=== PATIENT | female | born 1950 | race Caucasian/White ===

== ENCOUNTER 2021-08-05 09:25 | Outpatient (CLI) | payer MEDICARE, OTHER, SELFPAY ==
--- NOTE | 2021-08-05 09:35 | XR_ITS ---
WS: [id number] Exam: XR knees AP WB w RT lmt ORTH Date/Time of Exam: 08/05/2021 9:56 AM Reason For Exam: M25.561 - Pain in right knee No fracture or dislocation. Moderate tricompartmental DJD most advanced involving the lateral joint c ompartment. No significant joint effusion seen. AP view of the left knee shows a total joint replacem ent appearing to be intact XR/XR knees AP WB w RT lmt ORTH IMPRESSION: 1. Moderate tricompartmental DJD. No fracture or joint effusion.
== END 2021-08-05 09:26 | disposition home or self-care (01) ==
LOC: RAD 09:29
PROVIDERS: PCP Registered Nurse; Visit Provider Specialist
DX: M17.11 Unilateral primary osteoarthritis, right knee (principal)
CPT/HCPCS: 73560; 73565

== ENCOUNTER 2021-08-23 09:32 | Outpatient (CLI) | payer MEDICARE, OTHER, SELFPAY ==
--- NOTE | 2021-08-23 09:40 | MR_ITS ---
WS: [id number] MRI RIGHT KNEE HISTORY: RIGHT knee pain. Possible meniscal tear. COMPARISON: 08/05/2021 radiographs. Anterior cruciate ligament: Intact. Posterior cruciate ligament: Intact. Medial collateral ligament: Intact. Posterior lateral corner structures: Intact. Medial menisci: No tear. Mild surface fraying. Lateral meniscus: Abnormal signal in the posterior horn. There is a horizontal tear that extends to t he inferior articular surface involving the peripheral third of the meniscus. There is also fraying a long the superior and inferior surfaces and blunting of the free edge. Extensor mechanism: Distal quadriceps tendon and patellar tendons are intact. Fluid and soft tissue: Small suprapatellar effusion. No Gan's cyst. Osseous and articular structures: Patellofemoral compartment: Moderate chondromalacia patella. There is significant loss of cartilage g reatest involving the medial facet. There is a very small amount of edema along the medial patella. N o fracture. Medial compartment: Mild narrowing medial compartment. 8mm cartilage defect along the weightbearing s urface of the femoral condyle. Chondromalacia extends into the more central portion of the femoral co ndyle. Additional thinning and fraying of the cartilage. No fracture or marrow edema. Lateral compartment: Moderate narrowing of the lateral compartment. Significant loss of cartilage. Sm all marginal osteophytes. There is a small amount of marrow edema along the weightbearing surface of the femoral condyle and along the tibial plateau. MR/MR knee RT wo con* [id number] IMPRESSION: 1. Horizontal tear posterior lateral meniscus extends to the inferior articula r surface with additional intrasubstance degeneration and blunting of the free edge. 2. Moderate chondromalacia medial femoral condyle. 3. Moderate narrowing of the lateral compartment with chondromalacia and osteo phytes and marrow edema. 4. Moderate chondromalacia patella.
== END 2021-08-23 09:33 | disposition home or self-care (01) ==
LOC: RAD 09:38
PROVIDERS: PCP Registered Nurse; Visit Provider Specialist
DX: S83.281A Other tear of lateral meniscus, current injury, right knee, initial encounter (principal); X58.XXXA Exposure to other specified factors, initial encounter; M22.41 Chondromalacia patellae, right knee
CPT/HCPCS: 73721

== ENCOUNTER → 2021-09-17 00:01 | Outpatient (BNVA) | payer MEDICARE, OTHER, SELFPAY | PROVIDERS: PCP Registered Nurse; Visit Provider Specialist | DX: Z20.822 Contact with and (suspected) exposure to COVID-19 (principal); M17.11 Unilateral primary osteoarthritis, right knee | CPT/HCPCS: 80053; 81003; 85025; 87635 ==

== ENCOUNTER → 2021-09-17 09:35 | Day surgery (SDC) | payer MEDICARE, OTHER, SELFPAY | PROVIDERS: PCP Registered Nurse; Visit Provider Specialist | DX: Z01.818 Encounter for other preprocedural examination (principal) | CPT/HCPCS: 93005 ==

== ENCOUNTER 2021-09-18 10:59 | Emergency (ER) | payer MEDICARE, OTHER, SELFPAY ==
[2021-09-18 11:13] VITALS: BP 108/74; PULSE 83; RESP 18; TEMP 36.8; O2SAT 98; BMI 27.3
--- NOTE | 2021-09-18 11:23 | XR_ITS ---
WS: [id number] Portable AP upright chest, 09/18/2021 Clinical Data: chest pain Comparison: None. Findings: No nodules, masses or effusions are seen. The heart is normal. The pulmonary vascularity is not increased. No pneumonia or pneumothorax is seen. The aortic arch and descending thoracic aorta s how tortuosity. XR/XR chest 1V portable [id number] Impression: Atherosclerosis.
--- NOTE | 2021-09-18 11:25 | ED_ITS ---
HPI - Chest Pain General: Chief Complaint: Chest Pain Stated Complaint: Weakness, SOB Time Seen by Provider: 09/18/21 11:23 Source: patient and family () Mode of arrival: other (pov) Limitations: no limitations History of Present Illness: Patient states she was at home earlier and felt bilateral upper abdominal pressure and discomfort. This led to mild nausea and mild shortness of breath. She states she also felt like her heart was beating somewhat irregular but not tachycardic. She states she tried to stand up and felt very dizzy. states that she looked a little pale. She denied any chest pain per se but just upper abdominal discomfort. She states she ate some omelette bites about half hour prior to the onset of symptoms. She states she feels fine now. Possible history includes memory problems and takes generic Aricept for that. She states she takes no other medications. She denies any allergies. Past surgical history includes cholecystectomy, partial colectomy f or diverticulitis, appendectomy, hysterectomy. She is scheduled for knee surgery on September 24. She states she feels normal now and has no symptoms at all. She denies any previous cardiac problems. Prior episodes: No Exacerbating factors: nothing Associated symptoms: Reports abdominal pain, dyspnea, nausea and palpitations; Deny diaphoresis, fever(s), leg edema, syncope or vomiting Review of Systems Const: Reports: malaise; Denies: fever(s), body aches or diaphoresis Eyes: Denies: change in vision ENMT: Denies: throat pain Card: Reports: palpitations, irregular heart rhythm, lightheadedness and pre- syncope; Denies: chest pain, edema, syncope or dyspnea on exertion Resp: Reports: dyspnea; Denies: productive cough, non-productive cough, wheezing, stridor or pain on inspiration GI: Reports: abdominal pain and nausea; Denies: vomiting or diarrhea : Denies: flank pain, difficulty voiding or dysuria Musc: Denies: neck pain, back pain, extremity pain or extremity swelling Skin/Breast: Denies: rash, pruritus or erythema Neuro: Denies: headache(s), numbness in extremities, vertigo or confusion Psych: Denies: anxiety Win/Lymph: Denies: enlarged lymph nodes PFSH ED PFSH: Surgical History History of revision of total replacement of left knee joint Social History Smoking and tobacco status: former smoker Supplemental [facility] Information: Possible history includes memory problems, diverticulosis Physical Exam Const: COMMON NORMALS: no acute distress, patient oriented x3, no limitations and well nourished GENERAL APPEARANCE: cooperative HENMT: COMMON NORMALS: normocephalic and atraumatic HEAD & SCALP: normocephalic and atraumatic FACE & SINUS: normal facial exam Eye: COMMON NORMALS: EOMs intact bilaterally Neck/C-Spine: COMMON NORMALS: full ROM, no lymphadenopathy, supple and no meningeal signs GENERAL: Yes normal visual inspection CAROTIDS: No bruit Lymph: LYMPHATIC: no lymphadenopathy noted Chest: COMMONS NORMALS: normal inspection of the chest and normal palpation of entire chest wall CHEST: No Ecchymosis present and No rash Resp: COMMON NORMALS: normal respiratory effort, No retractions and clear to auscultation bilaterally EFFORT & INSPECTION: No respiratory distress AUSCULTATION: clear to auscultation bilaterally Cardio: COMMON NORMALS: regular rate, regular rhythm and Peripheral pulses 2+ throughout JUGULAR VENOUS DISTENTION: no JVD RATE: regular rate RHYTHM: regular rhythm BRUITS: no abdominal aortic bruits and no carotid bruits PERIPHERAL PULSES: Peripheral pulses 2+ throughout GI: COMMON NORMALS: Normal to inspection, nondistended, normoactive bowel sounds present and non-tender : COMMON NORMALS: Yes no CVA tenderness BLADDER/KIDNEY EXAM: Yes no CVA tenderness Back/Pelvis: COMMON NORMALS: no CVA tenderness Extremity: COMMON NORMALS: normal to inspection, full ROM and capillary refill normal Neuro: TED COMA SCALE: document GCS findings [place] coma scale eye opening: Spontaneous [place] coma scale verbal response: Orientated Ted coma scale motor response: Obey commands [place] coma scale total score: 15 COMMON NORMALS: patient oriented x3, CN's II-XII intact bilaterally, no focal motor deficits and no sensory deficits noted MENINGEAL SIGNS: Yes no meningeal signs SPEECH: speech normal MOTOR EXAM: 5/5 motor strength present throughout Psych: COMMON NORMALS: mental status grossly normal and Normal thought process present THOUGHT PROCESS: Normal thought process present Skin: COMMON NORMALS: no rashes or lesions noted and no wounds GENERAL SKIN EXAM: no rashes or lesions noted Course ED course: 1616: Patient was rechecked. Patient states she feels normal now. I offered observation hospital for further cardiac work-up due to the history of palpitations and atypical upper abdominal pain. Patient declined admission and wants to go home. She states she will return if symptoms worsen. I encouraged her to follow-up with a editor publications soon. She will contact her primary care doctor tomorrow for possible referral to cardiology. Vital Signs: Vital signs: Vital Signs Temperature 98.3 F 09/18/21 11:13 Pulse Rate 66 09/18/21 15:50 Respiratory Rate 16 09/18/21 15:50 Blood Pressure 120/100 09/18/21 15:50 Pulse Oximetry 98 09/18/21 15:50 MDM - Chest Pain Medical Decision Making Vasovagal episode, arrhythmia not otherwise specified. Lab Data : 09/18/21 12:32 09/18/21 13:17 Radiology Impressions Chest X-Ray 09/18/21 11:23 Impression: Atherosclerosis. Laboratory Results WBC 7.2 10^3/uL (4.0-10.0) 09/18/21 12:32 RBC 4.31 10^6/uL (4.1-5.3) 09/18/21 12:32 Hgb 12.6 g/dL (11.5-15.3) 09/18/21 12:32 Hct 41.5 % (37.0-47.0) 09/18/21 12:32 MCV 96.3 fl (81-99) 09/18/21 12:32 MCH 29.2 pg (28.0-34.0) 09/18/21 12:32 MCHC 30.4 g/dL (30.0-36.0) 09/18/21 12:32 RDW 13.2 % (12.1-15.1) 09/18/21 12:32 Plt Count 241 10^3/cmm (130-400) 09/18/21 12:32 MPV 11.6 fL (7.4-10.4) H 09/18/21 12:32 Neut % (Auto) 77.5 % 09/18/21 12:32 Lymph % (Auto) 13.9 % 09/18/21 12:32 [place] % (Auto) 5.1 % 09/18/21 12:32 Eos % (Auto) 2.1 % 09/18/21 12:32 Baso % (Auto) 1.0 % 09/18/21 12:32 Neut # (Auto) 5.57 10^3/uL (1.8-7.7) 09/18/21 12:32 Lymph # (Auto) 1.0 10^3/uL (0.8-4.8) 09/18/21 12:32 [place] # (Auto) 0.4 10^3/uL (0.2-0.9) 09/18/21 12:32 Eos # (Auto) 0.2 10^3/uL (0.0-0.8) 09/18/21 12:32 Baso # (Auto) 0.1 10^3/uL (0.0-0.1) 09/18/21 12:32 Nucleated RBC % (auto) 0 % 09/18/21 12:32 Nucleated RBCs # 0.0 /100WBC 09/18/21 12:32 APTT 21.7 SECONDS (23.9-36.7) L 09/18/21 13:17 Sodium 138 mmol/L (136-145) 09/18/21 13:17 Potassium 4.3 mmol/L (3.5-5.1) 09/18/21 13:17 Chloride 104 mmol/L (98-107) 09/18/21 13:17 Carbon Dioxide 23 mmol/L (22-29) 09/18/21 13:17 Anion Gap 15.3 (5-19) 09/18/21 13:17 BUN 23 mg/dL (8-23) 09/18/21 13:17 Creatinine 0.7 mg/dL (0.5-0.9) 09/18/21 13:17 GFR Calculation 83.2 mL/min (90-130) L 09/18/21 13:17 Glucose 92 mg/dL (65-115) 09/18/21 13:17 Calculated Osmolality 289 mOsm/kg (285-295) 09/18/21 13:17 Calcium 9.4 mg/dL (8.5-10.5) 09/18/21 13:17 Troponin T Baseline 6 ng/L (0-10) 09/18/21 12:32 Troponin T 120 Minute 6.42 ng/L (0-10) 09/18/21 14:59 NT-Pro-B Natriuret Pep 257 pg/mL (0-125) H 09/18/21 13:17 Imaging Data CXR: I personally reviewed and interpreted this imaging study as follows: My impression: Nothing acute. No infiltrate pneumothorax or effusion. Radiologist's impression: Date of Service: 09/18/21 Procedure(s): XR chest 1V portable 13359 Accession Number(s): [id number] Report Number: [id number] WS: [id number] Portable AP upright chest, 09/18/2021 Clinical Data: chest pain Comparison: None. Findings: No nodules, masses or effusions are seen. The heart is normal. The pulmonary vascularity is not increased. No pneumonia or pneumothorax is seen. The aortic arch and descending thoracic aorta show tortuosity. XR/XR chest 1V portable [id number] Impression: Atherosclerosis. ? Dictated By: Katharine Sweeney MD Signed By: Katharine Sweeney MD Signed Date/Time: 09/18/21 1148 EKG Data EKG 1: I personally reviewed and interpreted this EKG as follows: EKG interpretation date: 09/18/21 EKG interpretation time: 11:26 Prior EKG tracings: not available for review Interpretation: EKG shows normal sinus rhythm with heart rate of 80. There is nonspecific ST changes V3 V4 V5. Normal axis. Mild left atrial enlargement, normal [place] interval, normal QT interval. Normal P wave. Normal T waves. No previous EKG to compare to. Other EKG comments: Date of Service: 09/17/21 Procedure(s): ECG 12 lead EKG Accession Number(s): [id number] Report Number: [id number] ? [facility] ? Test Date:? ? 2021-09-17 Pat Name: ? ? Xiao Wilber ? Department: ? Patient ID: ? [id number] ? Room: ? Gender: ? ? ? Female ? Gourmet Coffee Attendant: ? :? 1950 ? Requested By: Dolores Leahy Order Number: [id number]? Reading MD: ? Mariza Franco M.D. ? Measurements Intervals? [place]? Rate: ? 66 ? P:? 69 [place]: ? 165? QRS:? 40 QRSD: ? 94 ? T:? 26 QT: ? 383? QTc:? 402? Interpretive Statements SINUS RHYTHM INCOMPLETE RIGHT BUNDLE BRANCH BLOCK? [90+ ms QRS DURATION, TERMINAL R IN V1/V2, 40+ ms S IN I/aVL/V4/V5/V6] NONSPECIFIC T-WAVE ABNORMALITY No previous ECG available for comparison Electronically Signed On 09-18-2021 5:51:35 EXPLOSIVE EXPERT by Mariza Franco M.D. [id number] Dictated By: Mariza Franco MD Signed By: Mariza Franco MD Signed Date/Time: 09/18/21 0553 EKG 2: I personally reviewed and interpreted this EKG as follows: EKG interpretation date: 09/18/21 EKG interpretation time: 14:23 Prior EKG tracings: available for review Interpretation: Normal sinus rhythm with heart rate of 59. Normal P waves, normal QRS, nonspecific ST changes in V3 V4 V5 relatively unchanged from previous EKG earlier. Normal axis. Discharge Plan Discharge Patient Disposition: Home Clinical Impression: Abdominal pain, acute, epigastric, Vasovagal episode, Palpitations Condition: Stable Prescriptions: No Action donepezil [Aricept] 10 mg tablet 10 mg PO BEDTIME 0RF Aleve 220 mg Tablet 440 mg PO Q12H PRN (Reason: Pain) 0RF Discharge Orders: Discharge ED (Routine); Ordered 09/18/21 Ordered By: Geraldo Scott Referrals: Ivory Rosario FNP [Primary Care Provider] - 1-3 days (Call your doctor tomorrow for follow-up instructions. I encourage you to get cardiology consult soon for evaluation of palpitations) Discharge Diet: Cardiac Discharge Activity: Increase activity as tolerated Patient Instructions: Heart Palpitations (ED), Abdominal Pain (ED) Activity Restrictions/Additional Instructions: Follow-up with your family doctor tomorrow for follow-up instructions for evaluation of atypical abdominal pain and palpitations. Avoid caffeine. Return if any problems. You likely will need a cardiology consult. Coding Level of Care Code ED Outplacement Consultant for Stanislavg Fwd Exam Comprehensive
[2021-09-18] MEDS: aspirin 81 mg Chew Tablet 324 MG PO (11:31)
[2021-09-18 12:18] VITALS: BP 116/71; PULSE 67; RESP 16; O2SAT 99
[2021-09-18 12:35] VITALS: BP 124/69; PULSE 70; RESP 16; O2SAT 100
[2021-09-18 12:46] LABS: Basophils # 0.1 10^3/uL (0.0-0.1); Eosinophils # 0.2 10^3/uL (0.0-0.8); Eosinophils % 2.1 %; Hematocrit 41.5 % (37.0-47.0); Hemoglobin 12.6 g/dL (11.5-15.3); Lymphocytes % 13.9 %; Mean Corpuscular HGB Conc 30.4 g/dL (30.0-36.0); Mean Corpuscular Hemoglobin 29.2 pg (28.0-34.0); Mean Corpuscular Volume 96.3 fl (81-99); Mean Platelet Volume 11.6 fL (7.4-10.4); Monocytes # 0.4 10^3/uL (0.2-0.9); Monocytes % 5.1 %; Neutrophils # 5.57 10^3/uL (1.8-7.7); Neutrophils % 77.5 %; Nucleated Red Blood Cells % 0 %; Platelet Count 241 10^3/cmm (130-400); Red Blood Count 4.31 10^6/uL (4.1-5.3); Red Cell Distribution Width 13.2 % (12.1-15.1); White Blood Count 7.2 10^3/uL (4.0-10.0)
[2021-09-18] MEDS: sodium chloride 0.9% 1,000 ML 999 ML IV (13:13)
[2021-09-18 13:18] LABS: Troponin(5th) Baseline 6 ng/L (0-10)
--- NOTE | 2021-09-18 13:24 | ECG_ITS ---
[facility] Test Date: 2021-09-18 Pat Name: Xiao Merino Department: Room: Gender: Female Leg Man: : 1950 Requested By: Geraldo Dan Order Number: [id number] Olga Lidia MD: Xander Irving M.D. Measurements Intervals [place] Rate: 80 P: 78 HI: 166 QRS: 67 QRSD: 90 T: 85 QT: 387 QTc: 449 Interpretive Statements SINUS RHYTHM POSSIBLE RIGHT VENTRICULAR CONDUCTION DELAY [RSR (QR) IN V1/V2] NONSPECIFIC T-WAVE ABNORMALITY Compared to ECG 09/17/2021 10:08:42 Incomplete right bundle-branch block no longer present T-wave abnormality still present Electronically Signed On 09-18-2021 16:04:49 AIRCRAFT AIR CONDITIONING MECHANIC by Xander Irving M.D. [id number]
[2021-09-18 14:17] LABS: Partial Thromboplastin Time 21.7 SECONDS (23.9-36.7)
[2021-09-18 14:27] VITALS: PULSE 61; O2SAT 98
[2021-09-18 14:38] LABS: Blood Urea Nitrogen 23 mg/dL (8-23); Calcium 9.4 mg/dL (8.5-10.5); Carbon Dioxide 23 mmol/L (22-29); Chloride 104 mmol/L (98-107); Glomerular Filtration Rate 83.2 mL/min (90-130); Glucose 92 mg/dL (65-115); NT Pro B Type Natriuretic Pept 257 pg/mL (0-125); Osmolality Calculated 289 mOsm/kg (285-295); Sodium 138 mmol/L (136-145)
[2021-09-18 14:44] LABS: Anion Gap 15.3 (5-19); Potassium 4.3 mmol/L (3.5-5.1)
[2021-09-18 15:41] LABS: Troponin 5 2HR 6.42 ng/L (0-10)
[2021-09-18 15:50] VITALS: BP 120/100; PULSE 66; RESP 16; O2SAT 98
[2021-09-18 16:38] VITALS: BP 120/95; PULSE 66; O2SAT 97
--- NOTE | 2021-09-18 17:24 | ECG_ITS ---
[facility] Test Date: 2021-09-18 Pat Name: Xiao Merino Department: Room: Gender: Female Transportation Worker: : 1950 Requested By: Geraldo Dan Order Number: [id number] Olga Lidia MD: Xander Irving M.D. Measurements Intervals [place] Rate: 59 P: 76 FL: 162 QRS: 76 QRSD: 96 T: 72 QT: 417 QTc: 416 Interpretive Statements SINUS BRADYCARDIA INCOMPLETE RIGHT BUNDLE BRANCH BLOCK [90+ ms QRS DURATION, TERMINAL R IN V1/V2, 40+ ms S IN I/aVL/V4/V5/V6] MODERATE T-WAVE ABNORMALITY, CONSIDER ANTEROLATERAL ISCHEMIA [-0.1+ mV T-WAVE IN V3-V6] Compared to ECG 09/18/2021 11:11:06 Incomplete right bundle-branch block now present Possible ischemia now present Sinus rhythm no longer present T-wave abnormality still present Electronically Signed On 09-18-2021 16:02:23 SOFTWARE MANAGER by Xander Irving M.D. [id number]
[2021-09-18 17:27] LABS: Troponin 5 2HR Delta 0.42 ABS# (0-10)
== END 2021-09-18 16:43 | disposition home or self-care (01) ==
PROVIDERS: Emergency Provider Family Medicine; PCP Registered Nurse
DX: R10.13 Epigastric pain (principal); R55 Syncope and collapse; R00.2 Palpitations; Z87.891 Personal history of nicotine dependence
CPT/HCPCS: 71045; 80048; 83880; 84484; 85025; 85730; 93005; 96360; 99284; J7030

== ENCOUNTER 2021-09-24 14:18 | Observation (INO) | payer MEDICARE, OTHER, SELFPAY ==
--- NOTE | 2021-09-17 09:35 | ECG_ITS ---
[facility] Test Date: 2021-09-17 Pat Name: Xiao Merino Department: Room: Gender: Female Digital Marketer: : 1950 Requested By: Dolores Leahy Order Number: [id number] Olga Lidia MD: Mariza Franco M.D. Measurements Intervals [place] Rate: 66 P: 69 ID: [id number] QRS: 40 QRSD: 94 T: 26 QT: 383 QTc: 402 Interpretive Statements SINUS RHYTHM INCOMPLETE RIGHT BUNDLE BRANCH BLOCK [90+ ms QRS DURATION, TERMINAL R IN V1/V2, 40+ ms S IN I/aVL/V4/V5/V6] NONSPECIFIC T-WAVE ABNORMALITY No previous ECG available for comparison Electronically Signed On 09-18-2021 5:51:35 FREIGHT SORTER by Mariza Franco M.D. [id number]
--- NOTE | 2021-09-17 10:32 | P.ANESASSM_ITS ---
Pre-Anesthetic Assessment Height/Weight: Height 1.68 m Operation Date: 09/24/21 10:30 Proposed Procedures p Right Total Knee Arthroplasty 34511/m17.10(Right) - Dejah Holly MD Familial anesthetic complications: NOne Social No alcohol and No tobacco Exam alert, oriented x 3, clear to auscultation bilaterally and regular rate & rhythm Airway Cervical ROM: within normal limits Mallampati: Class II Dentition: other (missing) Anesthetic Plan ASA status: 1 Anesthesia: Regional (specify below) Other: spinal + adductor Risk of > 500 ml blood loss (7ml/kg in children): Yes, adequate IV access and fluids planned Other Pertinent Information colon (18 inches removed d/t diverticulitis) Medications/Allergies Home Medications Medication Instructions Recorded Confirmed Last Taken Type donepezil 10 mg tablet (Aricept) 10 mg PO DAILY 08/05/21 09/17/21 09/16/21 20:00 History Allergies Allergy/AdvReac Type Severity Reaction Status Date / Time No Known Allergies Allergy Verified 09/09/21 14:28 PENDING SALE TO [facility] Anesthesia Surgical History History of revision of total replacement of left knee joint Social History Smoking and tobacco status: former smoker Data Anesthesia Cardiac Studies: No Data to Display
[2021-09-17 10:34] LABS: Add Urine Microscopic? NO; Charge for UA Resulting for Rev
[2021-09-17 10:39] LABS: Basophils # 0.1 10^3/uL (0.0-0.1); Eosinophils # 0.3 10^3/uL (0.0-0.8); Eosinophils % 4.9 %; Hematocrit 40.1 % (37.0-47.0); Hemoglobin 12.4 g/dL (11.5-15.3); Lymphocytes # 1.6 10^3/uL (0.8-4.8); Lymphocytes % 26.8 %; Mean Corpuscular HGB Conc 30.9 g/dL (30.0-36.0); Mean Corpuscular Hemoglobin 28.6 pg (28.0-34.0); Mean Corpuscular Volume 92.6 fl (81-99); Mean Platelet Volume 11.2 fL (7.4-10.4); Monocytes # 0.4 10^3/uL (0.2-0.9); Monocytes % 7.2 %; Neutrophils # 3.65 10^3/uL (1.8-7.7); Neutrophils % 59.9 %; Nucleated Red Blood Cells % 0 %; Platelet Count 280 10^3/cmm (130-400); Red Blood Count 4.33 10^6/uL (4.1-5.3); Red Cell Distribution Width 12.9 % (12.1-15.1); White Blood Count 6.1 10^3/uL (4.0-10.0)
[2021-09-17 10:41] VITALS: BMI 27.3
[2021-09-17 10:54] LABS: Alanine Aminotransferase 19 U/L (0-33); Albumin Level 4.5 g/dL (3.5-5.2); Alkaline Phosphatase 91 IU/L (35-105); Anion Gap 14.1 (5-19); Aspartate Amino Transferase 21 U/L (0-32); Blood Urea Nitrogen 24 mg/dL (8-23); Calcium 9.7 mg/dL (8.5-10.5); Carbon Dioxide 24 mmol/L (22-29); Chloride 103 mmol/L (98-107); Globulin 3.4 g/dL (1.3-4.6); Glomerular Filtration Rate 71.3 mL/min (90-130); Glucose 97 mg/dL (65-115); Osmolality Calculated 288 mOsm/kg (285-295); Potassium 4.1 mmol/L (3.5-5.1); Sodium 137 mmol/L (136-145); Total Bilirubin 0.2 mg/dL (0.15-1.2); Total Protein 7.9 g/dL (6.6-8.7)
[2021-09-17 11:34] LABS: Urine Appearance Clear (CLEAR); Urine Color Straw (Yellow)
[2021-09-17 11:35] LABS: Bilirubin Urine Neg (Negative); Blood Urine Neg (Negative); Glucose Urine UA Norm (Normal); Ketones Urine Negative (Negative); Leukocyte Esterase Urine Negative (Negative); Nitrate Urine Negative (Negative); Protein Urine Neg (Negative); Urobilinogen Urine Neg (Negative); pH Urine 6.5 (5-7)
[2021-09-24] VITALS (17 sets, daily range): BP systolic 122–145; BP diastolic 72–99; PULSE 51–75; RESP 16–20; TEMP 36.3–36.8; O2SAT 95–100
[2021-09-24] MEDS: CELEcoxib 200 mg Capsule 400 MG PO (09:06)
[2021-09-24] MEDS: acetaminophen 1,000 MG/100 ML PIGGYBACK 400 MG IV ×2 (09:06→16:34)
[2021-09-24] MEDS: sodium chloride 0.9% 1,000 ML 30 ML IV (09:07)
--- NOTE | 2021-09-24 09:12 | P.ANESUD_ITS ---
Pre-Anesthetic Update Pre-Anesthetic Assessment: Date of Surgery/Procedure: 09/24/21 Preop Yesika gnosis: Severe degenerative osteoarthritis right knee Proposed Procedure: Operation Date: 09/24/21 10:30 Proposed Procedures p Right Total Knee Arthroplasty 81272/m17.10(Right) - Dejah Holly MD Any changes to Pre-Anesthetic Assessment?: No Last Intake: Intake Last Liquid Date 09/23/21 Last Liquid Time 20:00 Last Solid Date 09/23/21 Last Solid Time 18:00 Vitals: Temperature 98.0 F 09/24/21 08:38 Temperature Source Temporal Artery S can 09/24/21 08:38 Pulse Rate 75 09/24/21 08:38 Pulse Rhythm 09/24/21 08:38 Pulse Strength 3+ Normal 09/24/21 08:38 Respiratory Rate 18 09/24/21 08:38 Blood Pressure 133/99 09/24/21 08:38 Blood Pressure Lindsey n 110 09/24/21 08:38 Pulse Oximetry 98 09/24/21 08:38 Oxygen Delivery Me thod 09/24/21 08:38 Exam: Pre-Anes Outpt Exam: alert, oriented x 3, clear to auscultation bilaterally and regular rate & rhythm Cardiac Studies: No Data to Display
--- NOTE | 2021-09-24 10:11 | P.HPUD_ITS ---
Surgery/Procedure H&P Update DATE OF PROCEDURE: September 24, 2021 DATE H&P PERFORMED: 09/09/21 H&P UPDATE INFORMATION: I have reviewed H&P completed within last 30 days, I have examined patient prior to procedure, No changes to prior documentation and H&P is in [facility] [place] [facility] EMR on date indicated PREOP DIAGNOSIS: Severe degenerative osteoarthritis right knee PLANNED PROCEDURE: Operation Date: 09/24/21 10:30 Proposed Procedures p Right Total Knee Arthroplasty 78268/m17.10(Right) - Dejah Holly MD Related Problem List Diagnoses (1) Primary osteoarthritis of right knee:
--- NOTE | 2021-09-24 11:33 | ANES.PROC ---
Anesthesia Procedures Procedure/Date: 09/24/21 Nerve Block ^: Nerve Block 1: Main Anesthesia: spinal anesthesia block Time Out Performed: Yes Consent: requested by attending/covering physician, from patient, risks and benefits reviewed and patient agrees to proceed Nerve block location: adductor canal (right) Anesthesia monitors applied: pulse oximetry, EKG, BP cuff and oxygen Nerve block position: supine Anesthetic Used: ropivicaine 0.5% Amount of anesthesia used (mL): 20 Ultrasound used to: recognize landmarks Nerve Stimulator Used?: No Interscalene/Femoral BLK: 4 stimuplex 21 g needle used for position and inplane approach Patient Tolerated Procedure: well Complications: none
[2021-09-24] MEDS: sodium chloride 0.9% 100 mL Bag 50 ML XX (11:47)
[2021-09-24] MEDS: vancomycin 1,000 MG SDV 1000 MG XX (11:48)
[2021-09-24] MEDS: ceFAZolin 1,000 mg SDV 2000 MG IRRIGATION (11:49)
--- NOTE | 2021-09-24 13:36 | XRR_ITS ---
PROCEDURE INFORMATION: Exam: XR Right Knee Exam date and time: 09/24/2021 1:36 PM Age: 70 years old Clinical indication: Device placement; Other: Total knee arthroplasty; Prior surgery; Surgery date: Post-operative (0-2 days); Additional info: Status post right total knee arthroplasty TECHNIQUE: Imaging protocol: XR Right knee. Views: 1 or 2 views. COMPARISON: MR knee RT wo con* [id number] 08/23/2021 10:33 AM FINDINGS: Bones/joints: Sequela of recently placed right total knee arthroplasty in expected alignment. Soft tissues: Skin ellen and soft tissue swelling and gas noted in the anterior knee consistent with recent surgical procedure. XR/XR knee RT 1-2V 15104 IMPRESSION: Sequela of recently placed right total knee arthroplasty in expected alignment.
--- NOTE | 2021-09-24 13:37 | P.OP_ITS ---
Operative Report Date of procedure: September 24, 2021 Pre-op diagnosis: Severe degenerative osteoarthritis right knee Post-op diagnosis: Severe degenerative osteoarthritis right knee Post-op findings: No flexion contracture, but instability with valgus stress. Procedure done: Right Total Knee Arthroplasty Implants: The Alex total knee system with a size 4 triathlon beaded posterior stabilized femur right, a triathlon titanium tibial component size 4 beaded, a triathlon X3 posterior stabilized tibial bearing insert size 4 X 13 mm and a beaded triathlon titanium asymmetric patella size 35 x 10 mm Specimens removed/disposition: Bone, disposed of Pathology: none sent Surgeon: Dejah Holly Salesperson [employer] Furnishings[facility] Estimated blood loss (mL): 10 Tourniquet time (min): 90 (At 250 mmHg) IV fluids (mL): 700 Urine output (mL): 200 Complications: None Findings: Severe degenerative osteoarthritis of the right knee with valgus instability. Condition: stable Disposition: PACU (Then to floor for postoperative rehabilitation and pain management) Brief History: This 64-year-old woman presented to my office with complaints of severe right knee pain which caused limitations in her activities of daily living.? This knee was unresponsive to conservative measures, and after discussion, the patient wished to proceed with operative intervention.? She understood the risks and complications and consents were signed.? She has previously undergonetotal knee arthroplasty on the left with subsequent revision. Postoperatively, plans were made for the patient to be placed on the floor overnight for observation and jacquie n management as well as initiation of physical therapy. Procedure: The patient was brought to the operating theater, and after undergoing adequate spinal anesthesia with MAC, ASA 1, and with supplemental adductor canal block placed, the right lower extremity was prepped with Dura-Prep and draped in usual fashion following placement of a tourniquet high on the leg. The leg was then draped free. Following prepping and draping, the leg was exsanguinated, and the tourniquet was elevated to 250 mm Hg for a total tourniquet time of 90 minutes.? Prior to elevation of the tourniquet, but following exposure of the site of surgery, a surgical pause was performed. At the time of the surgical pause, we confirmed the site and side of surgery. Additionally, we confirmed the appropriate and timely administration of preoperative antibiotics, Ancef 2 g and Transexemic acid 1 g. The availability of equipment was confirmed, and the patient's identity was verbalized as well. Following the surgical pause, an incision was made centering over the patella continuing proximally and distally as necessary to allow access to the knee joint. Dissection continued through skin and soft tissues using a scalpel. Hemostasis was obtained using electrocautery. The skin incision was followed by a median parapatellar arthrotomy. The leg was extended and the patella was everted. Following this, the leg was returned to flexed position.? The distal femur was exposed and a drill hole was made in this for placement of the distal femoral jig. The distal femoral jig was set at 5? of valgus. The distal femoral cutting block was then placed in appropriate position, and an karsten wing was used to confirm an appropriate amount of distal femur would be resected.? The d istal femoral resection was accomplished with 8 mm of bone being resected distally. After the distal femoral resection had been accomplished, the femur was measured and it measured a size 4 in an anterior posterior direction is in a medial lateral direction.? A size 4 femoral cutting block was placed in position, and we were then able to accomplish the anterior, posterior and chamfer cuts. This jig was then removed, and the notch guide was placed in position. With the notch guide in appropriate position, the notch was excised including resection of the anterior and posterior cruciate ligaments. This notch was to allow for the posterior stabilized femoral component. At this point, the femur was prepared and attention was directed to the proximal tibia. The posterior knee retractor was placed along with medial and lateral retractors.? Further resection of the menisci was accomplished as we had better visualization. A complete meniscectomy was performed both medially and laterally with care being taken to protect the popliteus. Retractors were then placed so that the proximal tibia was well visualized. A drill hole was then made in the tibia for placement of the intramedullary guide. This guide was placed so that approximately 2 mm of bone would be resected from the medial tibial plateau, and this resulted in 4 mm resected from the lateral tibial plateau. The intramedullary guide was utilized supplemented with an extramedullary guide to assure appropriate alignment for the proximal tibial resection. The proximal tibial jig was then evaluated, pinned in position, and the proximal tibial resection was accomplished without difficulty. The jig was removed, and the proximal tibia was measured. It measured a size 4. We then attempted a trial reduction with a size 2 by 11 mm insert.? The knee was placed through range of motion.? A slight medial release was accomplished, and we were able to place a size 13 to match the medial and lateral laxity.? There was excellent stability with excellent varus-valgus alignment with appropriate patellar tracking. Extension was noted to be full as well.? This was felt to be the appropriate size insert. There was full extension and flexion without lift off, and the rotation of the tibia was marked. Alignment was checked from the hip to the ankle, and this was noted to be appropriate as well. Attention was then directed to the patella. The patella was measured with a caliper.? We resected sufficient patella to leave approximately 13 mm of patella remaining, and this gave us sufficient cancellous bone for the cementless patella.? Measurements of the patella then indicated that a size asymmetric 35 mm x 10 mm was the appropriate patellar size. We then placed the jig to drill for the 3 pegs of the press-fit patella, and these drill holes were made without incident. A trial patella was then placed, and the knee was placed through range of motion. The patella was noted to track nicely without evidence of subluxation.? The femur was prepared for a press-fit femur by drilling 2 holes for the femoral pegs.? All trial components were subsequently removed. The tibial tray was then pinned into position, and we broached the tibia for the stem of the tibial component.? Subsequently, 4 drill holes were made for placement of the press-fit tibia.? This was accomplished without difficulty. Care was taken to assure appropriate rotation of the tibia as well as appropriate position on the proximal tibia. The tibial tray was completely seated on the proximal tibia. Following broaching, the tibial guide was removed, and all surfaces were copiously irrigated. The surfaces were then dried and a bone plug was placed into the distal femur.? Exparel was also injected at this point. The Tritanium tibia was impacted into position.? The beaded femur was then impacted into position in a cementless fashion. The tibial insert was placed. The patella was pressed into position with a patellar clamp.? The knee was irrigated with 20 mL of Betadine and 500 mL of normal saline, and this was allowed to remain in the knee for 3-4 minutes.? The knee was then copiously irrigated and suctioned dry.? Attention was then directed to closure.? Closure was accomplished with 0 Vicryl in the fascial tissues.? Following this, a 2-0 Monocryl was used in the subcutaneous tissues, and the skin was closed with skin ellen. A sterile dressing was then placed consisting of dermabond Prineo, OpSite, ABD, sterile soft roll, and an Carlo wrap. The patient was returned the Recovery Room in a satisfactory condition.? X-rays were obtained there.? The pat ient will be discharged to the floor for postoperative rehabilitation and pain management. Related Problem List Diagnoses (1) Primary osteoarthritis of right knee:
[2021-09-24] MEDS: meperidine 50 mg/mL INJ 12.5 MG IVP (13:42)
--- NOTE | 2021-09-24 15:27 | ANE.PACU2 ---
Inpatient post-anesthesia follow up: Airway intact: Yes Vital signs: Temperature 97.4 F Pulse Rate 58 Respiratory Rate 18 Blood Pressure 122/76 Pulse Oximetry 96 Oxygen Delivery Me thod Room Air Oxygen Flow Rate Fraction of Inspir ed Oxygen Hydration adequate: Yes Nausea and vomiting: No Pain level: 2 Mental status: Baseline
[2021-09-24] MEDS: oxyCODONE 5 mg IR Tab/Cap PO ×2 (16:01→20:42)
[2021-09-24] MEDS: chlorhexidine gluconate 0.12% Btl 473 mL 30 ML MUCOUS MEM ×2 (16:34→20:43)
[2021-09-24] MEDS: calcium carbonate 500 mg Chew Tablet 1000 MG PO (18:14)
[2021-09-24] MEDS: mupirocin oint 22 gm 1 APPLIC NASAL (18:14)
[2021-09-24] MEDS: sennosides-docusate Tablet 2 TAB PO (18:14)
[2021-09-24] MEDS: iron polysaccharide complex 150 mg Capsule PO (18:15)
[2021-09-24] MEDS: donepezil 5 MG Tablet 10 MG PO (20:42)
[2021-09-25] VITALS (7 sets, daily range): BP systolic 123–129; BP diastolic 76–83; PULSE 66–74; RESP 16–18; TEMP 36.5–36.9; O2SAT 93–98
[2021-09-25] MEDS: oxyCODONE 5 mg IR Tab/Cap PO ×3 (00:16→10:04)
[2021-09-25] MEDS: acetaminophen 1,000 MG/100 ML PIGGYBACK 400 MG IV ×2 (00:29→08:11)
[2021-09-25 05:23] LABS: Basophils # 0.1 10^3/uL (0.0-0.1); Basophils % 0.9 %; Eosinophils # 0.2 10^3/uL (0.0-0.8); Eosinophils % 3.4 %; Hematocrit 30.2 % (37.0-47.0); Hemoglobin 9.5 g/dL (11.5-15.3); Lymphocytes # 0.8 10^3/uL (0.8-4.8); Lymphocytes % 14.3 %; Mean Corpuscular HGB Conc 31.5 g/dL (30.0-36.0); Mean Corpuscular Hemoglobin 29.1 pg (28.0-34.0); Mean Corpuscular Volume 92.4 fl (81-99); Mean Platelet Volume 11.2 fL (7.4-10.4); Monocytes # 0.4 10^3/uL (0.2-0.9); Monocytes % 8.1 %; Neutrophils % 73.1 %; Nucleated Red Blood Cells % 0 %; Platelet Count 200 10^3/cmm (130-400); Red Blood Count 3.27 10^6/uL (4.1-5.3); Red Cell Distribution Width 12.7 % (12.1-15.1); White Blood Count 5.3 10^3/uL (4.0-10.0)
[2021-09-25 05:40] LABS: Anion Gap 11.9 (5-19); Blood Urea Nitrogen 14 mg/dL (8-23); Calcium 8.6 mg/dL (8.5-10.5); Carbon Dioxide 21 mmol/L (22-29); Chloride 107 mmol/L (98-107); Glomerular Filtration Rate 83.2 mL/min (90-130); Glucose 118 mg/dL (65-115); Osmolality Calculated 284 mOsm/kg (285-295); Potassium 3.9 mmol/L (3.5-5.1); Sodium 136 mmol/L (136-145)
[2021-09-25] MEDS: calcium carbonate 500 mg Chew Tablet 1000 MG PO (08:10)
[2021-09-25] MEDS: multivitamin therapeutic Tablet 1 TAB PO (08:10)
[2021-09-25] MEDS: aspirin 325 mg EC Tablet PO (08:10)
[2021-09-25] MEDS: sennosides-docusate Tablet 2 TAB PO (08:10)
[2021-09-25] MEDS: iron polysaccharide complex 150 mg Capsule PO (08:10)
[2021-09-25] MEDS: cholecalciferol (vitamin D3) 1,000 unit Tablet 1000 UNIT PO (08:10)
[2021-09-25] MEDS: chlorhexidine gluconate 0.12% Btl 473 mL 30 ML MUCOUS MEM (08:12)
[2021-09-25] MEDS: mupirocin oint 22 gm 1 APPLIC NASAL (08:12)
--- NOTE | 2021-09-25 10:22 | PC.CHAP ---
Pastoral Care Encounter/Spiritual Assessment Type of Contact [] Declined paper sales representative visit [] Patient/Family/Request visit [] Outpatient visit [] Follow-up visit [] Physician referral [] Code/Alert [x] Routine visit [] Staff referral [] Actively dying [] Patient sleeping [] Family support [] [] Out of room [] Palliative care [] [] Receiving care in room [] Pre-surgical visit [] Trauma [] Long length of stay [] ICU visit [] Other: Relational/Emotional Strength [x] Patient feels connected with others/family/visitors/staff [] Distress [] Loneliness/isolation [] Abandonment Spirituality of Patient [x] Person of Dunia [x] Attends Anglican of their Dunia [x] Believes in Prayer [] Reads Bible or Orthodox materials [] There are Spiritual issues to be addressed Poultry Dresser Interventions [x] Prayer [x] Active listening [x] Non-anxious presence [x] Spiritual/emotional support [] Crisis/trauma care [] Spiritual counseling [] Bereavement support [] Provided bereavement packet [] Provided Bible/devotional materials [] Provided toy/stuffed animal, coloring book to patient or family member [] Provided Communion [] Anointing/Hustler [] Salvation [x] Completed spiritual assessment [] Other: Impact on Illness or Injury [] Angry [] Fearful [] Anxious [] Often cries [] Exhaustion [] Unable to work [] Unable to attend zoroastrian [] Unable to walk/stand [] Unable to read [] Unable to drive [] Unable to eat/drink [] Unable to sleep [] Unable to be with family [] Patient intubated [] Other: Summary Time spent with patient 10 min
--- NOTE | 2021-09-25 11:47 | PC.NURSE ---
Discussed discharge instructions, medications and follow up appointments. Verbalized understanding.
--- NOTE | 2021-09-25 13:48 | P.DS_ITS ---
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 using cement: Status: Acute Permanent problem details: Date of procedure: September 24, 2021 Procedure done: Right Total Knee Arthroplasty Implants: Alex total knee system with a size 4 triathlon beaded posterior stabilized femur right, a triathlon titanium tibial component size 4 beaded, a triathlon X3 posterior stabilized tibial bearing insert size 4 X 13 mm and a beaded triathlon titanium asymmetric patella size 35 x 10 mm Reason for Visit Reason for Visit: osteoarthritis right knee m17.10 Brief History: This 64-year-old woman presented to my office with complaints of severe right knee pain which caused limitations in her activities of daily living.? This knee was unresponsive to conservative measures, and after discussion, the patient wished to proceed with operative intervention.? She understood the risks and complications and consents were signed.? She has previously undergonetotal knee arthroplasty on the left with subsequent revision.? Postoperatively, plans were made for the patient to be placed on the floor overnight for observation and pain management as well as initiation of physical therapy. Hospital Course Hospital Course This 70-year-old woman was admitted under observation statusfollowing right total knee arthroplasty performed on September 24, 2021. The patient was seen on the first postoperative day. She was doing well. Therapy was quite pleased with her progress. She was able to actively straight leg raise uneventfully. Dressing was changed, the wound was benign. There was no evidence of drainage onto the dressing at all. Calf was soft and nontender. She was neurologically intact. There was no evidence of DVT. The patient was on aspirin 1/day for DVT prophylaxis. This is a 325 mg aspirin. She will follow-up with me as scheduled. Physical Exam Const: COMMON NORMALS: no acute distress, average body habitus, patient oriented x3 and alert GENERAL APPEARANCE: cooperative and comfortable ORIENTATION/CONSCIOUSNESS: Yes awake HENMT: COMMON NORMALS: normocephalic and atraumatic HEAD & SCALP: normocephalic and atraumatic Eye: GENERAL EYE: appearance normal, both eyes and all related structures Chest: COMMONS NORMALS: normal inspection of the chest Resp: COMMON NORMALS: normal respiratory effort EFFORT & INSPECTION: Yes able to speak in complete sentences and Yes symmetric chest movement Extremity: RIGHT LOWER EXTREMITY: Yes knee joint (Dressing is removed. Incision is benign. No evidence of infection.) Right knee: Yes inspection (No drainage or ecchymosis.), Yes palpation (Minimal tenderness to palpation.), Yes ROM (Able to actively straight leg raise.) and Yes neurovascular exam (Intact distally.) Neuro: COMMON NORMALS: patient oriented x3 SENSORIUM/ORIENTATION: Yes alert Psych: COMMON NORMALS: mental status grossly normal APPEARANCE: Yes grossly normal ATTITUDE: Yes calm and Yes engaged ATTENTION/CONCENTRATION: Yes attention grossly intact Skin: COMMON NORMALS: no rashes or lesions noted GENERAL SKIN EXAM: no rashes or lesions noted Urinary Catheter Management: Corbin: Cath Placed During This Visit: yes, but has since been removed by the nurse Reason for Continuing Indwelling Catheter: Required Immobilization for Trauma or Surgery or Anesthesia Urinary Catheter Date of Insertion: 09/24/21 Urinary Catheter Time of Insertion: 11:10 Date Urinary Catheter Removed: 09/25/21 Time Urinary Catheter Discontinued: 06:34 Discharge Data Studies Completed and Pending Completed Studies During Hospitalization Category Date Time Status XR knee RT 1-2V [id number] Urgent Exams 09/24/21 13:36 Completed Radiology Impressions Knee X-Ray 09/24/21 13:36 IMPRESSION: Sequela of recently placed right total knee arthroplasty in expected alignment. Laboratory Results WBC 5.3 10^3/uL (4.0-10.0) 09/25/21 05:16 RBC 3.27 10^6/uL (4.1-5.3) L 09/25/21 05:16 Hgb 9.5 g/dL (11.5-15.3) L 09/25/21 05:16 Hct 30.2 % (37.0-47.0) L 09/25/21 05:16 MCV 92.4 fl (81-99) 09/25/21 05:16 MCH 29.1 pg (28.0-34.0) 09/25/21 05:16 MCHC 31.5 g/dL (30.0-36.0) 09/25/21 05:16 RDW 12.7 % (12.1-15.1) 09/25/21 05:16 Plt Count 200 10^3/cmm (130-400) 09/25/21 05:16 MPV 11.2 fL (7.4-10.4) H 09/25/21 05:16 Neut % (Auto) 73.1 % 09/25/21 05:16 Lymph % (Auto) 14.3 % 09/25/21 05:16 [place] % (Auto) 8.1 % 09/25/21 05:16 Eos % (Auto) 3.4 % 09/25/21 05:16 Baso % (Auto) 0.9 % 09/25/21 05:16 Neut # (Auto) 3.90 10^3/uL (1.8-7.7) 09/25/21 05:16 Lymph # (Auto) 0.8 10^3/uL (0.8-4.8) 09/25/21 05:16 [place] # (Auto) 0.4 10^3/uL (0.2-0.9) 09/25/21 05:16 Eos # (Auto) 0.2 10^3/uL (0.0-0.8) 09/25/21 05:16 Baso # (Auto) 0.1 10^3/uL (0.0-0.1) 09/25/21 05:16 Nucleated RBC % (auto) 0 % 09/25/21 05:16 Nucleated RBCs # 0.0 /100WBC 09/25/21 05:16 Sodium 136 mmol/L (136-145) 09/25/21 05:16 Potassium 3.9 mmol/L (3.5-5.1) 09/25/21 05:16 Chloride 107 mmol/L (98-107) 09/25/21 05:16 Carbon Dioxide 21 mmol/L (22-29) L 09/25/21 05:16 Anion Gap 11.9 (5-19) 09/25/21 05:16 BUN 14 mg/dL (8-23) 09/25/21 05:16 Creatinine 0.7 mg/dL (0.5-0.9) 09/25/21 05:16 GFR Calculation 83.2 mL/min (90-130) L 09/25/21 05:16 Glucose 118 mg/dL (65-115) H 09/25/21 05:16 Calculated Osmolality 284 mOsm/kg (285-295) L 09/25/21 05:16 Calcium 8.6 mg/dL (8.5-10.5) 09/25/21 05:16 Total Bilirubin 0.2 mg/dL (0.15-1.2) 09/17/21 10:20 AST 21 U/L (0-32) 09/17/21 10:20 ALT 19 U/L (0-33) 09/17/21 10:20 Alkaline Phosphatase 91 IU/L (35-105) 09/17/21 10:20 Total Protein 7.9 g/dL (6.6-8.7) 09/17/21 10:20 Albumin 4.5 g/dL (3.5-5.2) 09/17/21 10:20 Globulin 3.4 g/dL (1.3-4.6) 09/17/21 10:20 Urine Color Straw (Yellow) 09/17/21 10:20 Urine Appearance Clear (CLEAR) 09/17/21 10:20 Urine pH 6.5 (5-7) 09/17/21 10:20 Ur Specific [place] 1.010 (1.005-1.030) 09/17/21 10:20 Urine Protein Neg (Negative) 09/17/21 10:20 Urine Glucose (UA) Norm (Normal) 09/17/21 10:20 Urine Ketones Negative (Negative) 09/17/21 10:20 Urine Blood Neg (Negative) 09/17/21 10:20 Urine Nitrate Negative (Negative) 09/17/21 10:20 Urine Bilirubin Neg (Negative) 09/17/21 10:20 Urine Urobilinogen Neg mg/dL (Negative) 09/17/21 10:20 Ur Leukocyte Esterase Negative (Negative) 09/17/21 10:20 Vitals Last Vital Signs Temp 98.1 F 09/25/21 12:25 Pulse 72 09/25/21 12:25 Resp 17 09/25/21 12:25 BP 123/80 09/25/21 12:25 Pulse Ox 98 09/25/21 12:25 Discharge Plan Discharge Patient Disposition: Home Health Service Condition: Stable Prescriptions: New acetaminophen 500 mg Tablet 1,000 mg PO Q8H Qty: 0 0RF aspirin 325 mg Tablet,Delayed Release (Dr/Ec) 325 mg PO DAILY 30 Days Qty: 0 0RF oxycodone 5 mg Tablet 5 mg PO Q4H PRN (Reason: Moderate Pain) 7 Days Qty: 30 0RF Ambien 5 mg tablet 5 mg PO .QHS PRN (Reason: insomnia) Qty: 14 0RF Continued donepezil [Aricept] 10 mg tablet 10 mg PO BEDTIME 0RF Held naproxen sodium [Aleve] 220 mg Tablet 440 mg PO Q12H PRN (Reason: Pain) 0RF Hold Instructions: Resume on 10/25/21. After completion of Celebrex No Action (DME) Walker See Rx Instructions .Route .MEDSUPPLY Qty: 1 0RF Rx Instructions: As directed Discharge Orders: Discharge Order (Routine); Ordered 09/25/21 Ordered By: Dejah Holly Other Ambulatory Orders: DME: Walker (Order) Location: None Selected Ordered By: Dejah Holly [place] [facility] [place]) [Outside] Dejah Holly MD [Physician] - 10/07/21 11:15 am Discharge Diet: Advance as tolerated, Usual diet and As Directed Discharge Activity: Increase activity as tolerated, Limit activity as instructed, Use walker/crutches as instructed and As per PT/OT instructions Patient Instructions: Oxycodone/Acetaminophen (By mouth), Aspirin (By mouth), Zolpidem (By mouth), Knee Replacement (GEN), Opioid Safety Activity Restrictions/Additional Instructions: Ice to right knee. Elevation. Range of motion, gait training, and strengthening with physical therapy. Discharge Attestations Time Spent in Discharge Care*: greater than 30 min Specific Discharge Activities: educating patient, documenting/other paperwork and evaluating patient/reviewing data Quality Metrics Clinical Quality Measures [ No reported AMI, CVA or VTE this stay] Coding Level of Care Code Acute Chg FW DC note Diagnoses Primary osteoarthritis of right knee M17.11 Status post total right knee replacement not using cement Z96.651
== END 2021-09-25 12:26 | disposition home health service (06) ==
LOC: MEDSURG 14:18
PROVIDERS: Admitting Provider Specialist; PCP Registered Nurse; Visit Provider Specialist
PROC: (CPT 27447; principal; 2021-09-24 10:10)
DX: M17.11 Unilateral primary osteoarthritis, right knee (principal); Z87.891 Personal history of nicotine dependence
CPT/HCPCS: 27447; 36415; 51702; 64447; 73560; 76942; 80048; 85025; 97110; 97116; 97161; 97165; 97530; C1776; C9290; G0378; J0690; J2175; J2250; J2704; J2795; J3010; J3370; J3490; J7030

== ENCOUNTER → 2021-10-07 11:08 | Outpatient (BNVA) | payer MEDICARE, OTHER, SELFPAY | PROVIDERS: PCP Registered Nurse; Visit Provider Specialist | DX: Z96.651 Presence of right artificial knee joint (principal) | CPT/HCPCS: 73560; 73565 ==

== ENCOUNTER → 2021-10-30 11:05 | Outpatient (BNVA) | payer MEDICARE, OTHER, SELFPAY | PROVIDERS: PCP Registered Nurse; Visit Provider Specialist | DX: Z87.891 Personal history of nicotine dependence (principal); Z96.651 Presence of right artificial knee joint | CPT/HCPCS: 73560; 73565 ==

== ENCOUNTER → 2022-02-12 14:28 | Outpatient (BNVA) | payer MEDICARE, OTHER, SELFPAY | PROVIDERS: PCP Registered Nurse; Visit Provider Specialist | DX: Z96.651 Presence of right artificial knee joint (principal) | CPT/HCPCS: 73560; 73565; 99213 ==

== ENCOUNTER 2022-09-08 14:40 | Outpatient (CLI) | payer MEDICARE, OTHER, SELFPAY ==
--- NOTE | 2022-09-08 14:52 | MM_ITS ---
WS: [id number] BILATERAL 3D TOMOSYNTHESIS DIGITAL SCREENING MAMMOGRAPHY WITH CAD CLINICAL INFORMATION: SCREENING HISTORY: Screening mammogram. No current complaints. COMPARISON: None. TECHNIQUE: Bilateral CC and MLO views. FINDINGS: Bilateral breast implants appear intact. The breasts are composed of heterogeneous fibroglandular density tissue, which can limit the detectio n of small underlying mass lesions. No suspicious mass, asymmetry, calcifications, or architectural d istortion. No evidence of malignancy. Incidental punctate and lucent centered calcifications. MM/[place] [id number] IMPRESSION: BI-RADS: 2-Benign FOLLOW UP: 1 Year Follow-up Recommend return to annual screening mammography.
== END 2022-09-08 14:41 | disposition home or self-care (01) ==
PROVIDERS: PCP Nurse Practitioner Family; Visit Provider Nurse Practitioner Family
DX: Z12.31 Encounter for screening mammogram for malignant neoplasm of breast (principal)
CPT/HCPCS: 77063; 77067

== ENCOUNTER → 2022-10-08 11:11 | Outpatient (BNVA) | payer MEDICARE, OTHER, SELFPAY | PROVIDERS: PCP Nurse Practitioner Family; Visit Provider Specialist | DX: Z96.653 Presence of artificial knee joint, bilateral (principal) | CPT/HCPCS: 73560; 73565; 99213 ==

== ENCOUNTER → 2022-11-27 08:45 | Outpatient (BNVA) | payer MEDICARE, OTHER, SELFPAY | PROVIDERS: PCP Nurse Practitioner Family; Referring Provider Nurse Practitioner Family; Visit Provider Anesthesiology Pain Medicine | DX: M48.062 Spinal stenosis, lumbar region with neurogenic claudication (principal); M47.816 Spondylosis without myelopathy or radiculopathy, lumbar region; M17.11 Unilateral primary osteoarthritis, right knee; Z96.653 Presence of artificial knee joint, bilateral | CPT/HCPCS: 99205 ==

== ENCOUNTER → 2022-12-25 13:14 | Outpatient (BNVA) | payer MEDICARE, OTHER, SELFPAY | PROVIDERS: PCP Nurse Practitioner Family; Visit Provider Anesthesiology Pain Medicine | DX: M47.816 Spondylosis without myelopathy or radiculopathy, lumbar region (principal); M48.062 Spinal stenosis, lumbar region with neurogenic claudication | CPT/HCPCS: 64493; 64494; 64495 ==

== ENCOUNTER → 2023-01-13 13:02 | Outpatient (BNVA) | payer MEDICARE, OTHER, SELFPAY | PROVIDERS: PCP Nurse Practitioner Family; Visit Provider Anesthesiology Pain Medicine | DX: M47.816 Spondylosis without myelopathy or radiculopathy, lumbar region (principal); M48.062 Spinal stenosis, lumbar region with neurogenic claudication | CPT/HCPCS: 64493; 64494; 64495; J3490 ==

== ENCOUNTER → 2023-02-03 08:48 | Outpatient (BNVA) | payer MEDICARE, OTHER, SELFPAY | PROVIDERS: PCP Nurse Practitioner Family; Visit Provider Anesthesiology Pain Medicine | DX: M48.062 Spinal stenosis, lumbar region with neurogenic claudication (principal); M47.816 Spondylosis without myelopathy or radiculopathy, lumbar region; M17.11 Unilateral primary osteoarthritis, right knee; Z96.652 Presence of left artificial knee joint; Z96.651 Presence of right artificial knee joint | CPT/HCPCS: 99214 ==

== ENCOUNTER → 2023-03-03 13:39 | Outpatient (BNVA) | payer MEDICARE, OTHER, SELFPAY | PROVIDERS: PCP Nurse Practitioner Family; Visit Provider Anesthesiology Pain Medicine | DX: M47.816 Spondylosis without myelopathy or radiculopathy, lumbar region (principal); M48.062 Spinal stenosis, lumbar region with neurogenic claudication; M17.11 Unilateral primary osteoarthritis, right knee; Z96.653 Presence of artificial knee joint, bilateral | CPT/HCPCS: 64635; 64636; J1030 ==

== ENCOUNTER 2023-03-10 07:00 | Outpatient (CLI) | payer MEDICARE, OTHER, SELFPAY ==
--- NOTE | 2023-03-10 07:18 | USCV_ITS ---
Xiao Merino Age: 72 Gender: F : 1950 Exam Date: 03/10/2023 07:25 Ordering Phys: Chhaya Tomlin Technologist: Charissa Ovalles [place] [facility] [place]: Hypotension SOB BP: 104 / 61 HR: 60 Rhythm: Sinus Technical Quality: Adequate MEASUREMENTS (Male / Female) Normal Values 2D ECHO LV Diastolic Diameter PLAX 4.6 cm 4.2 - 5.9 / 3.9 - 5.3 cm LV Systolic Diameter PLAX 3.3 cm LV Chamber Size 4.0 cm IVS Diastolic Thickness 0.9 cm 0.6 - 1.0 / 0.6 - 0.9 cm IVS Systolic Thickness 1.2 cm LVPW Diastolic Thickness 1.0 cm 0.6 - 1.0 / 0.6 - 0.9 cm LVPW Systolic Thickness 1.4 cm RV Chamber Size 2.1 cm LVOT Diameter 2.0 cm LV Ejection Fraction 2D Teich 55.7 % LV Ejection Fraction MOD 2C 83.0 % LV Ejection Fraction 2C AL 82.8 % LA Diameter 2.9 cm LA Width 2.7 cm LA Height 2.6 cm RA Width 2.3 cm RA Height 2.8 cm Aorta at Sinotubular Diameter 3.0 cm IVC Diameter 1.1 cm M-MODE Aortic Annulus Diameter 3.2 cm LA Ao Ratio MM 1.0 MV E Point Septal Separation 0.3 cm DOPPLER AV Peak Velocity 115.0 cm/s LVOT Peak Velocity 108.0 cm/s AV Area Cont Eq vti 2.8 cm squared AV Area Cont Eq pk 3.0 cm squared MV Area PHT 4.6 cm squared Mitral E to A Ratio 1.3 MV E' Velocity 42.0 cm/s Mitral E to MV E' Ratio 6.9 Mitral E to LV E' Lateral Ratio 6.7 Mitral E to LV E' Septal Ratio 7.1 TR Peak Velocity 105.8 cm/s TR Peak Gradient 4.5 mmHg TR Mean Velocity 76.7 cm/s TR Mean Gradient 2.5 mmHg TR Velocity Time Integral 24.3 cm TV Peak E Velocity 67.0 cm/s RV Acceleration Time 0.1 s RV Ejection Time 0.3 s RV AcT/ET 0.4 FINDINGS Left Ventricle Normal left ventricular size and systolic function, EF 77 %. No regional wall motion abnormalities. Right Ventricle The right ventricle is normal in size and function. Right Atrium The right atrium is normal in size. Left Atrium The left atrium is normal in size. Mitral Valve Trace mitral valve regurgitation. Aortic Valve Thickened aortic valve. Tricuspid Valve Trace tricuspid valve regurgitation. Pulmonic Valve No gross abnormalities noted Pericardium No pericardial effusion. Aorta Normal ascending aorta dimension. IVC Inferior vena cava not visualized. CONCLUSIONS Normal left ventricular size and systolic function, EF 77 %. No regional wall motion abnormalities. Thickened aortic valve. Trace tricuspid valve regurgitation. Trace mitral valve regurgitation. There is no pericardial effusion. There are no intracardiac masses. No similar previous studies are available for comparison Dr Jim Brush MD FACC (Electronically Signed) Final Date: 12 March 2023 09:18 S
== END 2023-03-10 07:01 | disposition home or self-care (01) ==
LOC: RAD 07:02
PROVIDERS: PCP Nurse Practitioner Family; Visit Provider Nurse Practitioner Family
DX: I95.9 Hypotension, unspecified (principal); R06.02 Shortness of breath; I35.8 Other nonrheumatic aortic valve disorders
CPT/HCPCS: 93306

== ENCOUNTER → 2023-03-17 12:10 | Outpatient (BNVA) | payer MEDICARE, OTHER, SELFPAY | PROVIDERS: PCP Nurse Practitioner Family; Visit Provider Anesthesiology Pain Medicine | DX: M47.816 Spondylosis without myelopathy or radiculopathy, lumbar region (principal); M48.062 Spinal stenosis, lumbar region with neurogenic claudication | CPT/HCPCS: 64635; 64636; J1030 ==

== ENCOUNTER → 2023-03-31 08:55 | Outpatient (BNVA) | payer MEDICARE, OTHER, SELFPAY | PROVIDERS: PCP Nurse Practitioner Family; Visit Provider Anesthesiology Pain Medicine | DX: M48.062 Spinal stenosis, lumbar region with neurogenic claudication (principal); Z96.651 Presence of right artificial knee joint; Z96.652 Presence of left artificial knee joint; M17.11 Unilateral primary osteoarthritis, right knee; M47.816 Spondylosis without myelopathy or radiculopathy, lumbar region | CPT/HCPCS: 99213 ==

== ENCOUNTER → 2023-07-07 13:05 | Outpatient (BNVA) | payer MEDICARE, OTHER, SELFPAY | PROVIDERS: PCP Nurse Practitioner Family; Visit Provider Nurse Practitioner Family | DX: Z85.828 Personal history of other malignant neoplasm of skin (principal); D48.5 Neoplasm of uncertain behavior of skin; L57.0 Actinic keratosis; L57.8 Other skin changes due to chronic exposure to nonionizing radiation; D22.4 Melanocytic nevi of scalp and neck; L81.4 Other melanin hyperpigmentation; L82.1 Other seborrheic keratosis; L82.0 Inflamed seborrheic keratosis | CPT/HCPCS: 11102; 17000; 17110; 99204 ==

== ENCOUNTER → 2023-07-30 09:31 | Outpatient (BNVA) | payer MEDICARE, OTHER, SELFPAY | PROVIDERS: PCP Nurse Practitioner Family; Visit Provider Anesthesiology Pain Medicine | DX: M53.3 Sacrococcygeal disorders, not elsewhere classified (principal); M25.559 Pain in unspecified hip; M47.816 Spondylosis without myelopathy or radiculopathy, lumbar region; M48.062 Spinal stenosis, lumbar region with neurogenic claudication; M17.11 Unilateral primary osteoarthritis, right knee; M25.551 Pain in right hip; M25.552 Pain in left hip; Z96.651 Presence of right artificial knee joint; Z96.652 Presence of left artificial knee joint | CPT/HCPCS: 72220; 73522; 99214 ==

== ENCOUNTER → 2023-08-05 08:39 | Outpatient (BNVA) | payer MEDICARE, OTHER, SELFPAY | PROVIDERS: PCP Nurse Practitioner Family; Visit Provider Dermatology | DX: C44.712 Basal cell carcinoma of skin of right lower limb, including hip (principal); L82.0 Inflamed seborrheic keratosis | CPT/HCPCS: 11602; 12032; 17000; 17110 ==

== ENCOUNTER → 2023-08-17 13:02 | Outpatient (BNVA) | payer MEDICARE, OTHER, SELFPAY | PROVIDERS: PCP Nurse Practitioner Family; Visit Provider Dermatology | DX: Z48.02 Encounter for removal of sutures (principal) | CPT/HCPCS: 99212 ==

== ENCOUNTER → 2023-09-14 08:42 | Outpatient (BNVA) | payer MEDICARE, OTHER, SELFPAY | PROVIDERS: PCP Nurse Practitioner Family; Visit Provider Anesthesiology Pain Medicine | DX: M48.062 Spinal stenosis, lumbar region with neurogenic claudication (principal); Z96.651 Presence of right artificial knee joint; Z96.652 Presence of left artificial knee joint; M17.11 Unilateral primary osteoarthritis, right knee; M47.816 Spondylosis without myelopathy or radiculopathy, lumbar region; M16.0 Bilateral primary osteoarthritis of hip | CPT/HCPCS: 99214 ==

== ENCOUNTER → 2023-09-21 14:08 | Outpatient (BNVA) | payer MEDICARE, OTHER, SELFPAY | PROVIDERS: PCP Nurse Practitioner Family; Visit Provider Anesthesiology Pain Medicine | DX: M16.11 Unilateral primary osteoarthritis, right hip; M17.11 Unilateral primary osteoarthritis, right knee; M48.062 Spinal stenosis, lumbar region with neurogenic claudication; M47.816 Spondylosis without myelopathy or radiculopathy, lumbar region; Z96.653 Presence of artificial knee joint, bilateral | CPT/HCPCS: 20610; J1030; J3490 ==

== ENCOUNTER → 2023-10-05 13:27 | Outpatient (BNVA) | payer MEDICARE, OTHER, SELFPAY | PROVIDERS: PCP Nurse Practitioner Family; Visit Provider Anesthesiology Pain Medicine | DX: M16.12 Unilateral primary osteoarthritis, left hip (principal) | CPT/HCPCS: 20610; 77002; J1030; J3490 ==

== ENCOUNTER → 2023-11-05 08:58 | Outpatient (BNVA) | payer MEDICARE, OTHER, SELFPAY | PROVIDERS: PCP Nurse Practitioner Family; Visit Provider Anesthesiology Pain Medicine | DX: M48.062 Spinal stenosis, lumbar region with neurogenic claudication; Z96.651 Presence of right artificial knee joint; Z96.652 Presence of left artificial knee joint; M17.11 Unilateral primary osteoarthritis, right knee; M47.816 Spondylosis without myelopathy or radiculopathy, lumbar region; M25.552 Pain in left hip | CPT/HCPCS: 99214 ==

== ENCOUNTER → 2023-11-17 13:29 | Outpatient (BNVA) | payer MEDICARE, OTHER, SELFPAY | PROVIDERS: PCP Nurse Practitioner Family; Visit Provider Nurse Practitioner Family | DX: L82.0 Inflamed seborrheic keratosis (principal); L57.0 Actinic keratosis; L91.8 Other hypertrophic disorders of the skin | CPT/HCPCS: 17000; 17110; 99213 ==

== ENCOUNTER → 2023-11-19 08:43 | Outpatient (BNVA) | payer MEDICARE, OTHER, SELFPAY | PROVIDERS: PCP Nurse Practitioner Family; Visit Provider Orthopaedic Surgery | DX: M48.062 Spinal stenosis, lumbar region with neurogenic claudication (principal) | CPT/HCPCS: 72110; 99204 ==

== ENCOUNTER 2023-11-30 12:24 | Outpatient (CLI) | payer MEDICARE, OTHER, SELFPAY ==
--- NOTE | 2023-11-30 13:00 | MR_ITS ---
WS: [id number] MRI LUMBAR SPINE NONCONTRAST HISTORY: back pain COMPARISON: Lumbar spine radiograph 11/19/2023 TECHNIQUE: Sagittal and axial multisequence imaging is submitted. Localizer image demonstrates cervical stenosis at C5-6. Although seen only on the localizer imaging s uspicious for myelomalacia within the cord. L3 anterolisthesis by 4 mm. L4 anterolisthesis by 4.7 mm. The disc spaces are mildly desiccated from L3-4 to L5-S1. No fractures or marrow edema. Conus terminates normally at L1-2 disc level. L1-L2: Mild facet arthritis and foraminal narrowing. L2-L3: Mild annular disc bulging with marked ligamentum flavum and facet arthritis. Encroachment upon the ventral thecal sac and foramina. Mild central, bilateral subarticular recess and foraminal steno sis. L3-L4: Diffuse annular disc bulging with a RIGHT foraminal disc protrusion and annular fissure. Small er LEFT foraminal disc protrusion. Severe ligamentum flavum and facet arthritis. There is marked encr oachment upon the traversing L4 nerve roots. Lesser encroachment upon the L3 nerve roots. Severe cent ral, bilateral subarticular recess and foraminal stenosis. L4-L5: Marked annular disc bulging with severe facet and ligamentum flavum arthritis. Severe central, bilateral subarticular recess and foraminal stenosis, RIGHT greater than LEFT. L5-S1: Annular disc bulging with a central disc protrusion and annular fissure. Disc contacts the tra versing S1 nerve roots. Moderate facet arthritis. Very mild foraminal stenosis. There is a small well -circumscribed cyst in the epidural space on the LEFT at L5-S1. May be associated with the facet join t. Suspect cystic mass associated with the LEFT kidney. MR/MR lumbar spine wo con* [id number] IMPRESSION: 1. Advanced central cervical stenosis at C5-6 with possible myelomalacia. This can be further evaluated by MRI. 2. L3 anterolisthesis by 4 mm and L4 anterolisthesis by 4.7 mm. 3. L2-3: Mild central, bilateral subarticular recess and foraminal stenosis. 4. L3-4: Severe central, bilateral subarticular recess and foraminal stenosis. There is significant encroachment upon the L3 and L4 nerve roots. 5. L4-5: Severe central, bilateral subarticular recess and foraminal stenosis, RIGHT greater than LEFT. Encroachment upon the L4 and L5 nerve roots. 6. L5-S1: Small central disc protrusion and annular disc bulging. There is mil d disc contact on the traversing S1 nerve roots. 7. Possible cystic mass RIGHT kidney. This can be further evaluated by ultraso und.
== END 2023-11-30 12:25 | disposition home or self-care (01) ==
LOC: RAD 12:25
PROVIDERS: PCP Nurse Practitioner Family; Visit Provider Orthopaedic Surgery
DX: M48.062 Spinal stenosis, lumbar region with neurogenic claudication (principal); M48.02 Spinal stenosis, cervical region; M48.08 Spinal stenosis, sacral and sacrococcygeal region; M51.26 Other intervertebral disc displacement, lumbar region; M43.16 Spondylolisthesis, lumbar region; G54.9 Nerve root and plexus disorder, unspecified; M51.37 Other intervertebral disc degeneration, lumbosacral region; M51.36 Other intervertebral disc degeneration, lumbar region; G06.1 Intraspinal abscess and granuloma
CPT/HCPCS: 72148

== ENCOUNTER → 2023-12-03 13:24 | Outpatient (BNVA) | payer MEDICARE, OTHER, SELFPAY | PROVIDERS: PCP Nurse Practitioner Family; Visit Provider Orthopaedic Surgery | DX: M48.062 Spinal stenosis, lumbar region with neurogenic claudication (principal); Z09 Encounter for follow-up examination after completed treatment for conditions other than malignant neoplasm | CPT/HCPCS: 36415; 80053; 81003; 85025; 99214 ==

== ENCOUNTER → 2023-12-11 10:00 | Outpatient (BNVA) | payer MEDICARE, OTHER, SELFPAY | PROVIDERS: PCP Nurse Practitioner Family; Visit Provider Family Medicine | DX: Z01.818 Encounter for other preprocedural examination (principal) | CPT/HCPCS: 93005 ==

== ENCOUNTER 2023-12-28 14:19 | Observation (INO) | payer MEDICARE, OTHER, SELFPAY ==
[2023-12-28] VITALS (18 sets, daily range): BP systolic 103–143; BP diastolic 62–115; PULSE 67–121; RESP 13–22; TEMP 32.7–37.5; O2SAT 91–100
--- NOTE | 2023-12-28 10:16 | W.PM.OPSUD ---
Surgery/Procedure H&P Update DATE OF PROCEDURE: December 28, 2023 DATE H&P PERFORMED: 12/11/23 H&P UPDATE INFORMATION: I have reviewed H&P completed within last 30 days, I have examined patient prior to procedure and No changes to prior documentation PREOP DIAGNOSIS: Lumbar stenosis with neurogenic claudication PLANNED PROCEDURE: Operation Date: 12/28/23 11:15 Proposed Procedures p L3-5 Spinal Fusion(Not Applicable) - DO anabel Stuart Lumbar Spine Decompression Lumbar Decompression(Not Applicable) - Jax Guzmán DO
[2023-12-28] MEDS: sodium chloride 0.9% 1,000 ML 30 ML IV (10:25)
[2023-12-28] MEDS: methadone 10 mg Tablet PO (10:28)
--- NOTE | 2023-12-28 10:51 | ANES.PREANE2 ---
Pre-Anesthetic Assessment Height/Weight: Height 1.68 m Temp Pulse Resp BP Pulse Ox O2 Del Method 97.7 F 69 18 143/90 94 Room Air 12/28/23 09:48 12/28/23 09:48 12/28/23 10:28 12/28/23 09:48 12/28/23 10:28 12/28/23 09:48 Preop Diagnosis: Lumbar stenosis with neurogenic claudication Operation Date: 12/28/23 11:15 Proposed Procedures p L3-5 Spinal Fusion(Not Applicable) - Jax Guzmán DO s Lumbar Spine Decompression Lumbar Decompression(Not Applicable) - Jax Guzmán DO Familial anesthetic complications: none Was Beta Natty taken within 24 hours: N/A Was Clonidine taken within 24 hours: N/A Last intake: Intake Last Liquid Date 12/27/23 Last Liquid Time 23:00 Last Solid Date 12/27/23 Last Solid Time 17:00 Social Tobacco (rudy) and No alcohol Exam alert, oriented x 3 and regular rate & rhythm Airway Submandibular: within normal limits Cervical ROM: within normal limits Mallampati: Class II Dentition: full Pulmonary Chronic Obstructive Pulmonary Disease Musc/skel Lower Back Pain and Osteoarthritis/DJD Neuropsych Anxiety and Depression Anesthetic Plan ASA status: 3 Anesthesia: General Other: Discussed a.line and transfusion. Medications/Allergies Home Medications Medication Instructions Recorded Confirmed Last Taken Type donepezil 10 mg tablet (Aricept) 10 mg PO BEDTIME 08/05/21 12/25/23 12/27/23 History acetaminophen 500 mg tablet 1,000 mg (2 x 500 mg) PO Q8H #0 09/25/21 12/25/23 12/24/23 Rx tabs marijuana inhalation 11/27/22 12/03/23 12/27/23 History zolpidem 5 mg tablet (Ambien) 5 mg PO BEDTIME 11/27/22 12/25/23 12/27/23 History Bone Growth Stimulator #1 ea 12/25/23 Unknown Rx Allergies Allergy/AdvReac Type Severity Reaction Status Date / Time No Known Allergies Allergy Verified 12/11/23 10:16 Current Medications Generic Name Dose Route Start Last Admin Trade Name Freq PRN Reason Stop Dose Admin Sodium Chloride 1,000 mls @ 30 mls/hr 12/28/23 09:45 12/28/23 10:25 Sodium Chloride 0.9% IV 12/29/23 09:44 30 mls/hr .Q24H ULYSSES Administration PFS Anesthesia Surgical History (Updated 12/25/23 @ 08:57 by Rajani Dupree RN) History of revision of total replacement of left knee joint Social History Smoking and tobacco/nicotine status: former use of tobacco/nicotine Data Anesthesia Cardiac Studies: Echocardiogram 03/10/23
[2023-12-28] MEDS: ceFAZolin 2,000 MG in sodium chloride 0.9% (plus) 50 ML 100 MG IV ×2 (12:06→19:46)
[2023-12-28] MEDS: lidocaine-epi 1% 20 mL INJ INJECTION (13:05)
[2023-12-28] MEDS: heparin, porcine 1,000 unit/mL INJ 10 mL 10000 UNIT IRRIGATION (13:05)
[2023-12-28] MEDS: vancomycin 1,000 MG SDV 1000 MG XX (13:06)
--- NOTE | 2023-12-28 14:34 | P.OP_ITS ---
Operative Report Date of procedure: December 28, 2023 Pre-op diagnosis: Lumbar stenosis with neurogenic claudication Post-op diagnosis: same Surgeon: Jax Guzmán, DO Procedure: 1. Posterior fusion L3-L5 2.? Instrumentation L3-L5 3. L4-5 laminectomy with facetectomies 4. L3/4 laminectomy with facetectomies 5. use of computer navigation / stereotactic spine 6. use of autograft from same incision 8. allograft 9. Bone marrow aspirate from right iliac crest Patient is brought to the operative suite.? After undergoing anesthesia, the patient had neuro monitoring attached.? Patient was then placed in the prone position on the Agustín table.? All areas of impingement were well-padded.? Patient was then prepped and draped in the normal sterile fashion.? Skin in cision was then made over the L3 to L5.? Subperiosteal dissection was made out to the transverse processes of L3 bilaterally, L4 bilaterally, L5 bilaterally.? The [employer] bone marrow aspirate kit was used to aspirate bone marrow aspirate.? This was done by using the sharp probe to open up the bone.? Aspiration was performed and then the blunt probe was then used to dissect down to through the bone tunnel.? An aspirating well drawn back a millimeter approximately 20 cc of bone marrow aspirate was used.? Admixed with the allograft and autograft bone that will be used. Next attension was brought to placing the fiducial for the computer navigation.? 2 pins were placed into the right iliac crest.? The fiducial was attached.? The C-arm was brought in and information from the C arm was then linked to the computer used for placing the screws.? Next attention was brought to placing the pedicle screws.? This was done by using the gearshift probe linked to computer navigation.? The probe was used to identify the pedicle.? Then the pedicle feeler was used followed by placement of screw.? This was done at L3 bilaterally, L4 bilaterally, L5 bilaterally. Next attention was brought to the laminectomy and partial facetectomy's of L4-5. This was done by take down the lamina of L4 using high-speed bur Kerrison rongeurs. This was taken down medial aspect of facet joints bilaterally. The this was done using Kerrison high-speed bur. Ligamentum flavum was taken down from L4 for L5. The L4 nerve root traced out the L4-5 foramen bilaterally and the L5 nerve was traced around the L5 pedicle. This was done bilaterally as well. Next attension was brought to the L3-4. The laminectomy of L3 was performed using high-speed bur as well as Kerrison rongeur. The medial aspect of facet joints taken out and high-speed bur Kerrison rongeur. Ligamentum flavum was taken down from L3-L4. The medial aspect of facet joints were taken down the L3 nerve was traced out the L3-4 foramen bilaterally to be adequate decompressing the L4 nerve was traced around the L4 pedicles bilaterally. Attention was then brought to attaching the rods to the screws placed in the L3 bilaterally, L4 bilaterally, L5 bilaterally.? Wound was copiously irrigated and then attention was brought to decorticating the facets and transverse processes laterally.? Bone that was taken down from the lamina was used along with osteoamp fibers and sponges were packed into the lateral gutters along the facet joints.? This was done bilaterally. Wound was then closed in a layered fashion starting with the thoracolumbar fascia.? 0-vicryl was used the sub cutaneous tissue was closed with 2-0 vicryl and skin with 4-0 monocryl.? Glue was then used to seal the skin and a steril dressing was applied.? Patient was then placed in the supine position. The endotracheal tube was removed and patient was transferred to the PACU in stable condition.
[2023-12-28] MEDS: HYDROmorphone 1 mg/mL INJ 1 mL 0.5 MG IVP (14:36)
--- NOTE | 2023-12-28 14:58 | XR_ITS ---
WS: [id number] INTRAOPERATIVE TECHNIQUE: 3 Spot fluoroscopic images for intraoperative purposes. FLUOROSCOPY TIME: 12 seconds CLINICAL INFORMATION: LUMBAR FUSION FINDINGS: Intraoperative pedicle screw fixation L3-L5 appears in good position. XR/XR lumbar spine 2-3V* [id number] IMPRESSION: Images obtained for intraoperative purposes.
[2023-12-28] MEDS: HYDROcodone-acetaminophen 5-325 mg Tablet PO ×3 (15:40→23:48)
[2023-12-28] MEDS: lactated ringers 1,000 ML 90 ML IV (15:40)
--- NOTE | 2023-12-28 15:53 | ANE.PACU2 ---
Inpatient post-anesthesia follow up: Airway intact: Yes Vital signs: Temperature 91 F Pulse Rate 90 Respiratory Rate 16 Blood Pressure 125/81 Pulse Oximetry 97 Oxygen Delivery Me thod Room Air Oxygen Flow Rate Fraction of Inspir ed Oxygen Hydration adequate: Yes Nausea and vomiting: No Pain level: 3 Mental status: Baseline
[2023-12-28] MEDS: docusate sodium 100 mg Capsule PO (17:44)
[2023-12-28] MEDS: ketorolac 30 mg/mL INJ IVP (20:32)
[2023-12-28] MEDS: donepezil 5 MG Tablet 10 MG PO (20:34)
[2023-12-28] MEDS: zolpidem 5 mg Tablet PO (20:34)
[2023-12-28] MEDS: morphine 4 mg/mL SDV 1 mL 2 MG IVP (21:33)
[2023-12-29] MEDS: morphine 4 mg/mL SDV 1 mL 2 MG IVP ×2 (01:15→04:31)
[2023-12-29] MEDS: lactated ringers 1,000 ML 90 ML IV (02:49)
[2023-12-29 04:31] VITALS: RESP 16
[2023-12-29] MEDS: ceFAZolin 2,000 MG in sodium chloride 0.9% (plus) 50 ML 100 MG IV (04:32)
[2023-12-29 07:39] VITALS: BP 104/67; PULSE 66; RESP 17; TEMP 36.4; O2SAT 98
--- NOTE | 2023-12-29 08:17 | PM.DCS ---
Discharge Providers Date of Admission: 12/28/23 14:19 Date of Discharge: December 29, 2023 Attending Provider at Admission: Jax Guzmán DO Attending Provider at Discharge: Jax Guzmán DO Primary Care Provider: RAMONA Contreras Reason for Visit Reason for Visit: M48.062 Physical Exam Narrative: Patient doing well sitting up in bed pain controlled. Urinary Catheter Management: Corbin: Cath Placed During This Visit: yes Reason for Continuing Indwelling Catheter: Required Immobilization for Trauma or Surgery or Anesthesia Urinary Catheter Date of Insertion: 12/28/23 Urinary Catheter Time of Insertion: 12:15 Discharge Data Studies Completed and Pending Pending at discharge Category Date Time Status XR lumbar spine 2-3V* [id number] Routine Exams 12/28/23 14:58 Taken Laboratory Results Blood Type A Negative 12/28/23 10:17 Rho(D) Type Rh negative 12/28/23 10:17 Antibody Screen Negative 12/28/23 10:17 Vitals Last Vital Signs Temp 97.6 F 12/29/23 07:39 Pulse 66 12/29/23 07:39 Resp 17 12/29/23 07:39 BP 104/67 12/29/23 07:39 Pulse Ox 98 12/29/23 07:39 O2 Del Method Room Air 12/29/23 07:39 Discharge Plan Discharge Prescriptions: New hydrocodone-acetaminophen 5-325 mg tablet 1 - 2 tab PO .Q4-6H Qty: 40 0RF Continued donepezil [Aricept] 10 mg tablet 10 mg PO BEDTIME zolpidem [Ambien] 5 mg tablet 5 mg PO BEDTIME marijuana inhalation (DME) Bone Growth Stimulator See Rx Instructions .Route .MEDSUPPLY Qty: 1 0RF Rx Instructions: As directed acetaminophen 500 mg Tablet 1,000 mg PO Q8H Qty: 0 0RF Discharge Orders: Discharge Order (Routine); Ordered 12/29/23 Ordered By: Jax Guzmán Discharge Diet: Advance as tolerated Discharge Activity: Limit activity as instructed Patient Instructions: Opioid Safety Activity Restrictions/Additional Instructions: Thank you for [facility] for your care! The following is a list of instructions, from your provider, to follow upon your discharge to ensure you have the optimal recovery from your recent injury orsurgery. Follow-up care is a smith part of your treatment and safety. Be sure to make and go to all appointments, and call your doctor if you are having problems. If you do not already have a follow-up appointment made, call Dr. Guzmán office in the next 1-3 days to make follow up appointment for 1 weeks at [phone]. It is also a good idea to know your test results and keep a list of the medicines you take. Medications will be prescribed for you at your provider's discretion. These medications are to be used as instructed; if they are taken more often that prescribed they will not be refilled early and in most cases will not be refilled at all. > When a refill is needed,you should contact julissa freeman 2-3 business days before your prescription runs out. Medications will NOT be refilled by pipeline superintendent division providers after hours! > Many pain medications contain Tylenol (Acetaminophen). Do not consume more than 4,000 mg of Tylenol per day in total with any combination ofmedications. > Pain medications can cause constipation. Please use an over the counter stool softener as directed, while taking pain medications. Consulty our local pharmacist with questions or recommendations on stool softeners. If constipation persists, contact our office or your primary care provider. > While under our care,you are not to receive pain medications or other controlled substances from any other provider unless our office is notified and approves. Any attempts to do so will result in refusal to prescribe any further pain medications and possible dismissal from our practice. ? starting would include; An increase in redness, swelling, or discharge, a foul odor present around the incision, and/or a fever greater than 101 ?F ? Showering is permitted, however we ask that you do not take a bath, sit in a whirlpool / Jacuzzi, or go swimming for 1 month. For only the first 2 days after surgery, lt wilt be necessary for you to cover your wound/dressing with plastic and tape to keep it dry. ? Walking is essential for the healing process after surgery. We would like you to slowly advance your walking. This should be done on relatively flat clear ground (inside or out) or can be done on a treadmill. Remember this goal does not have to happen all at once, slowly increase your distance and duration. This can be broken into more more than one walk per day as tolerated. Patients who walk as directed after surgery rarely require Physical Therapy. In the unlikely event this issue arises your provider will direct hospital staff to make the appropriate arrangements. ? No lifting over 5 pounds {a gallon of milk) or bending/twisting until further notice. Each of these activities places an unnecessary amount of stress onto the body and can impede the delicate healing process. > Instead of bending at the waist, keep your back straight and bend at the knees. > Instead of twisting your torso, keep your back straight and turn your entire body with your feet. ? You may sleep in any position which makes you comfortable. Many patients find comfort sleeping in a reclining chair. It is not abnormal to have difficulty sleeping for the first several weeks following your surgery. We recommend trying Benadry! or Tylenol PM as directed to help with your sleeping difficulties. Both medications are over the counter and available withoutprescription. ? NO SMOKING!!! Smoking dramatically increases the probability of developing postoperative wound infections. ? Common complaints after lumbar and/or thoracic spine surgery include, but are not limited to: numbness and/or tingling in the legs, pain around the incision and surrounding tissues, muscle spasms, or stiffness of the middle to low back. Contact our office if these symptoms persist or if an acute change occurs. ? No driving for the first 3-5days, and not while taking narcotics [] until seen at your follow-up appointment and cleared. There are no restrictions for riding on short trips, however if you take a longer trip, arrangements should be made to make regular stops to get out of the vehicle and stretch . ? Swelling is an unfortunate event that will take place with any surgery and is the primary source of your postoperative discomfort. While walking and regular approved activities helps control inflammation, there are additional steps you can take to minimizeswelling. > Place ice over the surgical site and surrounding tissue for twenty minutes, followed by applying a low/medium heat (heating pad) for an additional twenty minutes every 1-2 hours as needed for painrelief. > You may use of over the counter anti-inflammatory medications (Ibuprofen, Motrin, Aleve, Advil, etc) as directed on the package label. These types of medicines wm significantly reduce the amount of discomfort you experience after surgery from swelling. It should be noted that if you have and allergy to any of these medications, or a history of ulcers or kidney disease you should consult you primary care provider prior to starting these medications. Discharge Attestations Time Spent in Discharge Care*: less than 30 min Quality Metrics Clinical Quality Measures [ No reported AMI, CVA or VTE this stay] Coding Level of Care Code Acute Code for Chg Suzanne
--- NOTE | 2023-12-29 09:20 | PC.CHAP ---
Pastoral Care Encounter/Spiritual Assessment Type of Contact [] Declined inspector outside steam distribution visit [] Patient/Family/Request visit [] Outpatient visit [] Follow-up visit [] Physician referral [] Code/Alert [x] Routine visit [] Staff referral [] Actively dying [] Patient sleeping [] Family support [] [] Out of room [] Palliative care [] [] Receiving care in room [] Pre-surgical visit [] Trauma [] Long length of stay [] ICU visit [] Other: Relational/Emotional Strength [x] Patient feels connected with others/family/visitors/staff [] Distress [] Loneliness/isolation [] Abandonment Spirituality of Patient [x] Person of Dunia [x] Attends Mosque of their Dunia [x] Believes in Prayer [] Reads Bible or Congregational materials [] There are Spiritual issues to be addressed Hospitality Associate Interventions [x] Prayer [x] Active listening [] Non-anxious presence [x] Spiritual/emotional support [] Crisis/trauma care [] Spiritual counseling [] Bereavement support [] Provided bereavement packet [] Provided Bible/devotional materials [] Provided toy/stuffed animal, coloring book to patient or family member [] Provided Communion [] Anointing/[place] [] Salvation [x] Completed spiritual assessment [] Other: Impact on Illness or Injury [] Angry [] Fearful [] Anxious [] Often cries [] Exhaustion [] Unable to work [] Unable to attend taoist [] Unable to walk/stand [] Unable to read [] Unable to drive [] Unable to eat/drink [] Unable to sleep [] Unable to be with family [] Patient intubated [] Other: Summary Time spent with patient 10 min
[2023-12-29] MEDS: HYDROcodone-acetaminophen 5-325 mg Tablet PO (09:28)
[2023-12-29] MEDS: docusate sodium 100 mg Capsule PO (09:29)
[2023-12-29 11:31] VITALS: BP 117/73; PULSE 66; RESP 17; TEMP 36.4; O2SAT 97
[2023-12-29 12:17] VITALS: BP 117/73; PULSE 66; RESP 17; TEMP 36.4; O2SAT 97
--- NOTE | 2023-12-29 12:17 | PC.NURSE ---
Hemovac drained and removed @ 1145.
== END 2023-12-29 12:18 | disposition home or self-care (01) ==
LOC: MEDSURG 21:34
PROVIDERS: Admitting Provider Orthopaedic Surgery; PCP Nurse Practitioner Family; Visit Provider Orthopaedic Surgery
PROC: (CPT 20930; principal; 2023-12-28 10:55)
PROC: (CPT 63005; 2023-12-28 10:55)
DX: M48.062 Spinal stenosis, lumbar region with neurogenic claudication (principal); J44.9 Chronic obstructive pulmonary disease, unspecified; Z87.891 Personal history of nicotine dependence
CPT/HCPCS: 20930; 20936; 20939; 22612; 22614; 22842; 61783; 63047; 63048; 36415; 51702; 72100; 76000; 86850; 86900; 97116; 97161; C1713; C9359; G0378; J0690; J1100; J1170; J1200; J1644; J1885; J2250; J2270; J2405; J2704; J2710; J3010; J3370; J3490; J7030; J7120

== ENCOUNTER → 2024-01-12 14:53 | Outpatient (BNVA) | payer MEDICARE, OTHER, SELFPAY | PROVIDERS: PCP Nurse Practitioner Family; Visit Provider Orthopaedic Surgery | DX: Z98.1 Arthrodesis status (principal) | CPT/HCPCS: 99024 ==

== ENCOUNTER → 2024-02-11 13:00 | Outpatient (BNVA) | payer MEDICARE, OTHER, SELFPAY | PROVIDERS: PCP Nurse Practitioner Family; Visit Provider Orthopaedic Surgery | DX: Z98.1 Arthrodesis status (principal) | CPT/HCPCS: 72100; 99024 ==

== ENCOUNTER → 2024-02-25 15:17 | Outpatient (BNVA) | payer MEDICARE, OTHER, SELFPAY | PROVIDERS: PCP Nurse Practitioner Family; Visit Provider Orthopaedic Surgery | DX: Z98.1 Arthrodesis status (principal) | CPT/HCPCS: 72100; 99024 ==

== ENCOUNTER → 2024-03-24 10:40 | Outpatient (BNVA) | payer MEDICARE, OTHER, SELFPAY | PROVIDERS: PCP Nurse Practitioner Family; Visit Provider Orthopaedic Surgery | DX: M54.9 Dorsalgia, unspecified (principal); M48.062 Spinal stenosis, lumbar region with neurogenic claudication | CPT/HCPCS: 72100; 99024 ==

== ENCOUNTER 2024-08-18 08:45 | Oncology outpatient (recurring) (ONCR) | payer MEDICARE, OTHER, SELFPAY ==
--- NOTE | 2024-08-18 09:02 | XR_ITS ---
WS: [id number] Exam: XR chest 2V* [id number] Date/Time of Exam: 08/18/2024 9:04 AM Reason For Exam: vomiting and diarrhea, anorexia, weight loss, lymphopenia Comparison 09/18/2021. Lungs are fully expanded and clear. Normal cardiomediastinal silhouette. No pleural effusions. Bony s tructures are intact. Hardware partially visualized in the mid lumbar spine. XR/XR chest 2V* [id number] IMPRESSION: 1. Negative chest.
[2024-08-18 09:12] LABS: Basophils # 0.1 10^3/uL (0.0-0.1); Basophils % 1.5 %; Eosinophils # 0.2 10^3/uL (0.0-0.8); Eosinophils % 4.4 %; Hematocrit 37.5 % (36-47); Lymphocytes # 0.8 10^3/uL (0.8-4.8); Lymphocytes % 22.3 %; Mean Corpuscular HGB Conc 30.9 g/dL (30-55); Mean Corpuscular Hemoglobin 28.1 pg (27-33); Mean Corpuscular Volume 90.8 fl (85-98); Mean Platelet Volume 10.9 fL (7.4-10.4); Monocytes # 0.3 10^3/uL (0.2-0.9); Monocytes % 8.8 %; Neutrophils # 2.14 10^3/uL (1.8-7.7); Neutrophils % 62.7 %; Nucleated Red Blood Cells % 0 %; Platelet Count 266 10^3/cmm (157-399); Red Blood Count 4.13 10^6/uL (3.85-5.65); Red Cell Distribution Width 13.7 % (12.1-15.1); White Blood Count 3.41 10^3/uL (3.29-11.43)
[2024-08-18 09:34] LABS: Erythrocyte Sedimentation Rate 10 mm/hr (0-15)
[2024-08-18 09:35] LABS: Alanine Aminotransferase 18 U/L (0-33); Albumin Level 4.3 g/dL (3.5-5.2); Alkaline Phosphatase 83 U/L (35-105); Anion Gap 15.1 (5-19); Aspartate Amino Transferase 22 U/L (0-32); Blood Urea Nitrogen 18 mg/dL (8-23); Calcium 9.5 mg/dL (8.5-10.5); Carbon Dioxide 25 mmol/L (22-29); Chloride 105 mmol/L (98-107); Creatinine Clr Calc Pharmacy 63.5709; Ferritin 25 ng/mL (15-150); Globulin 3.3 g/dL (1.3-4.6); Glucose 92 mg/dL (65-115); Iron 72 ug/dL (37-145); Lactate Dehydrogenase 158 U/L (135-214); Osmolality Calculated 294 mOsm/kg (285-295); Percent Saturation 17.3 % (20-50); Potassium 4.1 mmol/L (3.5-5.1); Sodium 141 mmol/L (136-145); Total Bilirubin 0.4 mg/dL (0.15-1.2); Total Iron Binding Capacity 416 mcg/dl; Total Protein 7.6 g/dL (6.6-8.7); Unsaturated Iron Binding 344 ug/dL (112-347)
[2024-08-18 09:49] LABS: Vitamin B12 884 pg/mL (232-1245)
[2024-08-18 09:57] LABS: Folate Level 11.3 ng/mL (4.8-37.3)
[2024-08-19 06:54] LABS: PROTEIN, TOTAL 7.6 g/dL (6.1-8.1)
[2024-08-19 21:05] LABS: ALBUMIN 4.4 g/dL (3.8-4.8); ALPHA 1 GLOBULIN 0.3 g/dL (0.2-0.3); ALPHA 2 GLOBULIN 0.8 g/dL (0.5-0.9); BETA 1 GLOBULIN 0.6 g/dL (0.4-0.6); BETA 2 GLOBULIN 0.4 g/dL (0.2-0.5); GAMMA GLOBULIN 1.2 g/dL (0.8-1.7)
[2024-08-23 22:15] LABS: Immunofixation Serum Normal pattern.
== END 2024-08-19 23:59 | disposition home or self-care (01) ==
PROVIDERS: PCP Nurse Practitioner Family; Visit Provider Internal Medicine
DX: Z53.9 Procedure and treatment not carried out, unspecified reason (principal); R11.10 Vomiting, unspecified; R19.7 Diarrhea, unspecified; R63.0 Anorexia; R63.4 Abnormal weight loss; D72.810 Lymphocytopenia; R79.9 Abnormal finding of blood chemistry, unspecified
CPT/HCPCS: 36415; 71046; 80053; 82607; 82728; 82746; 83540; 83550; 83615; 84155; 84165; 85025; 85651; 86140; 86334; 99204

== ENCOUNTER 2024-08-25 13:27 | Outpatient (CLI) | payer MEDICARE, OTHER, SELFPAY ==
--- NOTE | 2024-08-25 13:31 | XR_ITS ---
WS: [id number] Cervical spine, 3 views, 08/25/2024 Clinical Data: CERVICAL RADICULOPATHY Comparison: None. Findings: No compression fractures are seen. Osteoarthritis of the anterior vertebral bodies C4-C7 is seen. There is degenerative disc narrowing at C6-C7. There is no prevertebral soft tissue swelling. The odontoid is unremarkable. The soft tissues of the neck and the lung apices are normal. XR/XR cervical spine 3V* [id number] Impression: 1. Degenerative disc narrowing at C6-C7. 2. Osteoarthritis C4-C7.
== END 2024-08-25 13:28 | disposition home or self-care (01) ==
LOC: RAD 13:29
PROVIDERS: PCP Nurse Practitioner Family; Visit Provider Nurse Practitioner Family
DX: M54.12 Radiculopathy, cervical region (principal); M50.323 Other cervical disc degeneration at C6-C7 level; M47.892 Other spondylosis, cervical region
CPT/HCPCS: 72040

== ENCOUNTER → 2024-09-01 13:37 | Outpatient (BNVA) | payer MEDICARE, OTHER, SELFPAY | PROVIDERS: PCP Nurse Practitioner Family; Referring Provider Nurse Practitioner Family; Visit Provider Orthopaedic Surgery | DX: M54.2 Cervicalgia (principal) | CPT/HCPCS: 72050; 99214 ==

== ENCOUNTER 2024-09-06 08:45 | Oncology outpatient (recurring) (ONCR) | payer MEDICARE, OTHER, SELFPAY ==
--- NOTE | 2024-09-06 08:45 | MR_ITS ---
WS: [id number] MRI CERVICAL SPINE NONCONTRAST TECHNIQUE: Sagittal T1, T2 and STIR imaging. Axial T2, gradient, and fiesta imaging. CLINICAL INFORMATION: Neck pain COMPARISON: None. FINDINGS: Straightening the normal cervical lordosis. Slight anterolisthesis C4 on C5. Disc bulging worse at C5-C6 and C6-C7. C2-C3: Mild facet arthropathy. Mild bilateral bony foraminal narrowing. C3-C4: Disc osteophyte complex with endplate ridging. Mild RIGHT greater than LEFT bony foraminal narrowing. Moderate RIGHT facet arthropathy. C4-C5: Mild disc osteophyte complex with endplate ridging. Severe LEFT bony foraminal narrowing. Moderate RIGHT foraminal narrowing. Mild central canal stenosis. Moderate facet arthropathy. C5-C6: Disc osteophyte complex with narrowing of the RIGHT subarticular recess. Mild to moderate central canal stenosis. Severe RIGHT and moderate to severe LEFT bony foraminal narrowing. Moderate facet arthropathy. C6-C7: Disc osteophyte complex with narrowing of the LEFT subarticular recess. Severe LEFT and moderate to severe RIGHT bony foraminal narrowing. Mild to moderate central canal stenosis. C7-T1: Spinal canal and foramen are patent. Visualized brain stem structures: Normal. Prevertebral soft tissues: Normal. MR/MR cervical spin wo con* [id number] IMPRESSION: 1. Straightening of the normal cervical lordosis. 2. Mild to moderate central canal stenosis C4-C5, moderate C5-C6 and mild to m oderate C6-7 due to disc osteophyte complexes. 3. Severe bony foraminal narrowing worse at LEFT C4-5, RIGHT C5-C6, and LEFT C 6-7.
== END 2024-09-16 23:59 | disposition home or self-care (01) ==
LOC: RAD 09-07 00:01 → ONCMED 09-08 09:04
PROVIDERS: PCP Nurse Practitioner Family; Visit Provider Orthopaedic Surgery
DX: M48.02 Spinal stenosis, cervical region (principal); M25.78 Osteophyte, vertebrae
CPT/HCPCS: 72141; 99213

== ENCOUNTER → 2024-09-20 13:54 | Outpatient (BNVA) | payer MEDICARE, OTHER, SELFPAY | PROVIDERS: PCP Nurse Practitioner Family; Visit Provider Orthopaedic Surgery | DX: Z01.818 Encounter for other preprocedural examination (principal); Z09 Encounter for follow-up examination after completed treatment for conditions other than malignant neoplasm | CPT/HCPCS: 36415; 80053; 81001; 85025; 99214 ==

== ENCOUNTER → 2024-10-11 09:11 | Outpatient (BNVA) | payer MEDICARE, OTHER, SELFPAY | PROVIDERS: PCP Nurse Practitioner Family; Visit Provider Family Medicine | DX: Z01.818 Encounter for other preprocedural examination (principal) | CPT/HCPCS: 81003; 93005 ==

== ENCOUNTER 2024-10-12 08:05 | Oncology outpatient (recurring) (ONCR) | payer MEDICARE, OTHER, SELFPAY ==
[2024-10-12 08:28] LABS: Basophils # 0.1 10^3/uL (0.0-0.1); Eosinophils # 0.4 10^3/uL (0.0-0.8); Eosinophils % 7.2 %; Hematocrit 37.9 % (36-47); Lymphocytes # 1.3 10^3/uL (0.8-4.8); Lymphocytes % 26.5 %; Mean Corpuscular HGB Conc 31.7 g/dL (30-55); Mean Corpuscular Hemoglobin 29.4 pg (27-33); Mean Corpuscular Volume 92.9 fl (85-98); Mean Platelet Volume 10.4 fL (7.4-10.4); Monocytes # 0.5 10^3/uL (0.2-0.9); Monocytes % 10.4 %; Neutrophils # 2.69 10^3/uL (1.8-7.7); Neutrophils % 53.7 %; Nucleated Red Blood Cells % 0 %; Platelet Count 291 10^3/cmm (157-399); Red Blood Count 4.08 10^6/uL (3.85-5.65); Red Cell Distribution Width 14.5 % (12.1-15.1); White Blood Count 5.01 10^3/uL (3.29-11.43)
[2024-10-12 08:38] LABS: Erythrocyte Sedimentation Rate 9 mm/hr (0-15)
[2024-10-12 08:40] LABS: Reticulocyte % 0.9 % (0.5-2.0)
[2024-10-12 08:47] LABS: Alanine Aminotransferase 14 U/L (0-33); Albumin Level 4.2 g/dL (3.5-5.2); Alkaline Phosphatase 67 U/L (35-105); Anion Gap 11.8 (5-19); Aspartate Amino Transferase 19 U/L (0-32); Blood Urea Nitrogen 12 mg/dL (8-23); Calcium 9.3 mg/dL (8.5-10.5); Carbon Dioxide 27 mmol/L (22-29); Chloride 104 mmol/L (98-107); Ferritin 21 ng/mL (15-150); Globulin 2.9 g/dL (1.3-4.6); Glucose 90 mg/dL (65-115); Iron 50 ug/dL (37-145); Lactate Dehydrogenase 152 U/L (135-214); Osmolality Calculated 287 mOsm/kg (285-295); Percent Saturation 12.9 % (20-50); Potassium 3.8 mmol/L (3.5-5.1); Sodium 139 mmol/L (136-145); Total Bilirubin 0.2 mg/dL (0.15-1.2); Total Iron Binding Capacity 386 mcg/dl; Total Protein 7.1 g/dL (6.6-8.7); Unsaturated Iron Binding 336 ug/dL (112-347)
[2024-10-12 09:03] LABS: Vitamin B12 573 pg/mL (232-1245)
[2024-10-12 09:59] LABS: Folate Level 8.9 ng/mL (4.8-37.3)
== END 2024-10-17 23:59 | disposition home or self-care (01) ==
LOC: ONCMED 08:06
PROVIDERS: Internal Medicine; PCP Nurse Practitioner Family; Visit Provider Orthopaedic Surgery
DX: M25.78 Osteophyte, vertebrae (principal); D72.810 Lymphocytopenia; R19.7 Diarrhea, unspecified; R11.10 Vomiting, unspecified; Z72.0 Tobacco use; R41.3 Other amnesia; R63.4 Abnormal weight loss; D50.9 Iron deficiency anemia, unspecified; N18.9 Chronic kidney disease, unspecified; Z79.899 Other long term (current) drug therapy
CPT/HCPCS: 36415; 80053; 82607; 82728; 82746; 83010; 83540; 83550; 83615; 85025; 85045; 85651; 86140; 99213

== ENCOUNTER 2024-10-14 06:35 | Day surgery (SDC) | payer MEDICARE, OTHER, SELFPAY ==
[2024-10-14] VITALS (17 sets, daily range): BP systolic 121–153; BP diastolic 45–99; PULSE 72–100; RESP 14–20; TEMP 36.1–36.7; O2SAT 96–100; BMI 23.3
--- NOTE | 2024-10-14 06:44 | W.PM.OPSUD ---
Surgery/Procedure H&P Update DATE OF PROCEDURE: October 14, 2024 DATE H&P PERFORMED: 09/20/24 H&P UPDATE INFORMATION: I have reviewed H&P completed within last 30 days, I have examined patient prior to procedure and No changes to prior documentation PLANNED PROCEDURE: Operation Date: 10/14/24 08:00 Proposed Procedures p Cervical Laminectomy(Not Applicable) - Jax Guzmán DO
[2024-10-14] MEDS: sodium chloride 0.9% 1,000 ML 30 ML IV (07:06)
--- NOTE | 2024-10-14 07:59 | ANES.PREANE2 ---
Pre-Anesthetic Assessment Height/Weight: Height 1.68 m Weight 65.771 kg Temp Pulse Resp BP Pulse Ox O2 Del Method 98.1 F 88 17 133/93 99 Room Air 10/14/24 06:53 10/14/24 06:53 10/14/24 06:53 10/14/24 06:53 10/14/24 06:53 10/14/24 06:53 Preop Diagnosis: Cervical stenosis with radiculopathy Operation Date: 10/14/24 08:00 Proposed Procedures p Cervical Laminectomy(Not Applicable) - Jax Guzmán, DO Familial anesthetic complications: None Was Beta Natty taken within 24 hours: N/A Was Clonidine taken within 24 hours: N/A Last intake: Intake Last Liquid Date 10/13/24 Last Liquid Time 16:00 Last Solid Date 10/13/24 Last Solid Time 17:00 Social No alcohol and No tobacco Exam alert, oriented x 3, clear to auscultation bilaterally and regular rate & rhythm Airway Mallampati: Class I Dentition: other (missing) Anesthetic Plan ASA status: 1 Anesthesia: General Risk of > 500 ml blood loss (7ml/kg in children): No Medications/Allergies Home Medications ?Medication ?Instructions ?Recorded ?Confirmed ?Last Taken ?Type donepezil 10 mg tablet (Aricept) 10 mg PO BEDTIME 08/05/21 10/14/24 10/13/24 History acetaminophen 500 mg tablet 1,000 mg (2 x 500 mg) PO Q8H #0 09/25/21 10/14/24 10/12/24 Rx tabs Bone Growth Stimulator #1 ea 12/25/23 10/12/24 Unknown Rx zolpidem 10 mg tablet 10 mg PO BEDTIME 12/29/23 10/14/24 10/13/24 History memantine 5 mg tablet 5 mg PO DAILY 08/17/24 10/14/24 10/13/24 History ondansetron 4 mg disintegrating 4 mg PO PRN PRN Nausea 08/17/24 10/14/24 Unknown History tablet ferrous sulfate 325 mg (65 mg 325 mg PO DAILY #30 tabs 10/12/24 10/14/24 Unknown Rx iron) tablet Allergies Allergy/AdvReac Type Severity Reaction Status Date / Time No Known Allergies Allergy Verified 10/14/24 06:50 Current Medications Generic Name Dose Route Start Last Admin Trade Name Frebartolo PRN Reason Stop Dose Admin Sodium Chloride 1,000 mls @ 30 mls/hr 10/14/24 06:45 10/14/24 07:06 Sodium Chloride 0.9% IV 10/15/24 06:44 30 mls/hr .Q24H ULYSSES Administration PFSH Anesthesia Surgical History H/O lumbosacral spine surgery History of breast augmentation History of colon resection History of cholecystectomy History of hysterectomy History of tonsillectomy History of revision of total replacement of left knee joint Social History Smoking and tobacco/nicotine status: tobacco/nicotine user, details unknown (smokeless nicotine) Data Anesthesia Cardiac Studies: Echocardiogram 03/10/23
[2024-10-14] MEDS: ceFAZolin 2,000 mg SDV 2000 MG IVP (08:00)
[2024-10-14] MEDS: lidocaine-epi 1% 20 mL INJ INJECTION (08:41)
--- NOTE | 2024-10-14 09:27 | PM.OP ---
Operative Report Date of procedure: October 14, 2024 Pre-op diagnosis: Cervical stenosis with radiculopathy Post-op diagnosis: same Procedure done: Left C6-7 partial facetectomy and foraminotomy Surgeon: Jax Guzmán DO Estimated blood loss (mL): 20 Procedure: Left C6-7 partial facetectomy and foraminotomy Patient is brought to the operative suite. After undergoing anesthesia they are placed in the prone position. All areas of impingement are well padded. Patient is then prepped and draped in the normal sterile fashion. A skin incision is made over the C6/7 level. This is confirmed under c-arm guidance. A series of dilators are passed and the tubular retractor is docked on the c6 lamina. A bovie is used to clear the soft tissue off the lamina and the C6/7 facet joint. A high speed lupe is then used to perform the laminectomy and take down the medial aspect of the C6/7 facet joint. A kerrison rongeure was then used to take down the remaining lamina and smooth the edge of the laminectomy up to the point where the ligamentum flavum attaches. Attention was then brought to the medial aspect of the facet joint. The remaining medial aspect of the superior and inferior aspect of the facet joint were taken down with the kerrison from the pedicle of C6 to C7. The facet joint had significant hypertrophy. Attention was then brought to the Ligamentum Flavum. The ligament was taken down from the lamina of C6 to C7 and out medially to the remaining facet joint. The ligament was thin. The dura was then exposed. The dura was in good repair. The C7 nerve was then traced with a curette out the C6/7 foramen and found to be adequately decompressed. Wound is then irrigated copiously with saline and surgiflo is used to stop any bleeding. The tubular retractor is removed and the wound is closed with vicryl and monocryl suture. Glue is then used to protect the wound. A sterile dressing is then placed. Patient was then placed in the supine position and transferred to the PACU in stable condition.
[2024-10-14] MEDS: fentaNYL 50 mcg/mL INJ 2mL IVP (09:44)
[2024-10-14] MEDS: meperidine 50 mg/mL INJ 12.5 MG IVP ×2 (09:50→10:46)
[2024-10-14] MEDS: HYDROcodone-acetaminophen 5-325 mg Tablet 1 TAB PO (10:21)
[2024-10-14] MEDS: ondansetron 2 mg/ML SDV 2 mL 4 MG IVP (10:34)
--- NOTE | 2024-10-14 11:10 | ANE.PACU2 ---
Inpatient post-anesthesia follow up: Airway intact: Yes Vital signs: Temperature 97.1 F Pulse Rate 72 Respiratory Rate 17 Blood Pressure 136/86 Pulse Oximetry 97 Oxygen Delivery Me thod Room Air Oxygen Flow Rate Fraction of Inspir ed Oxygen Hydration adequate: Yes Nausea and vomiting: No Pain level: 1 Mental status: Baseline
--- NOTE | 2024-10-14 11:25 | PC.NURSE ---
1110- Pt began shivering again. Notified anesthesiologist. Demerol order was placed by anesthesiologist & given by RN per emar. Shivering not observed at time of discharge.
--- NOTE | 2024-10-14 13:20 | XR_ITS ---
WS: [id number] Exam: XR cervical spine 3V* [id number] Date/Time of Exam: 10/14/2024 1:20 PM Reason For Exam: Left C6-7 partial facetectomy and foraminotomy Single AP C-arm image of the cervical spine is submitted. The image was obtained for preoperative localization purposes.
== END 2024-10-14 11:10 | disposition home or self-care (01) ==
PROVIDERS: PCP Nurse Practitioner Family; Visit Provider Orthopaedic Surgery
PROC: (CPT 63001; principal; 2024-10-14 08:00)
DX: M48.02 Spinal stenosis, cervical region (principal); M54.12 Radiculopathy, cervical region; K08.409 Partial loss of teeth, unspecified cause, unspecified class; F17.290 Nicotine dependence, other tobacco product, uncomplicated; Z79.899 Other long term (current) drug therapy
CPT/HCPCS: 63045; 72040; 76000; J0131; J0690; J1100; J2175; J2371; J2405; J2704; J2710; J3010; J3490; J7030; J9999

== ENCOUNTER → 2024-10-27 15:03 | Outpatient (BNVA) | payer MEDICARE, OTHER, SELFPAY | PROVIDERS: PCP Nurse Practitioner Family; Visit Provider Orthopaedic Surgery | DX: Z48.89 Encounter for other specified surgical aftercare (principal) | CPT/HCPCS: 99024 ==

== ENCOUNTER → 2024-11-24 09:02 | Outpatient (BNVA) | payer MEDICARE, OTHER, SELFPAY | PROVIDERS: PCP Nurse Practitioner Family; Visit Provider Orthopaedic Surgery | DX: Z48.89 Encounter for other specified surgical aftercare (principal) | CPT/HCPCS: 99024 ==

== ENCOUNTER 2024-12-26 12:18 | Oncology outpatient (recurring) (ONCR) | payer MEDICARE, OTHER, SELFPAY ==
[2024-12-26 13:11] LABS: Basophils # 0.1 10^3/uL (0.0-0.1); Basophils % 1.6 %; Eosinophils # 0.1 10^3/uL (0.0-0.8); Eosinophils % 2.9 %; Hematocrit 38.7 % (36-47); Lymphocytes % 25.1 %; Mean Corpuscular HGB Conc 31.8 g/dL (30-55); Mean Corpuscular Hemoglobin 29.8 pg (27-33); Mean Corpuscular Volume 93.7 fl (85-98); Mean Platelet Volume 11.3 fL (7.4-10.4); Monocytes # 0.4 10^3/uL (0.2-0.9); Monocytes % 9.4 %; Neutrophils # 2.34 10^3/uL (1.8-7.7); Nucleated Red Blood Cells % 0 %; Platelet Count 242 10^3/cmm (157-399); Red Blood Count 4.13 10^6/uL (3.85-5.65); Red Cell Distribution Width 12.6 % (12.1-15.1); White Blood Count 3.83 10^3/uL (3.29-11.43)
[2024-12-26 13:31] LABS: Alanine Aminotransferase 27 U/L (0-33); Albumin Level 4.2 g/dL (3.5-5.2); Alkaline Phosphatase 77 U/L (35-105); Anion Gap 16.9 (5-19); Aspartate Amino Transferase 27 U/L (0-32); Blood Urea Nitrogen 18 mg/dL (8-23); Calcium 9.1 mg/dL (8.5-10.5); Carbon Dioxide 22 mmol/L (22-29); Chloride 105 mmol/L (98-107); Ferritin 48 ng/mL (15-150); Globulin 2.9 g/dL (1.3-4.6); Glucose 89 mg/dL (65-115); Iron 110 ug/dL (37-145); Lactate Dehydrogenase 137 U/L (135-214); Osmolality Calculated 291 mOsm/kg (285-295); Percent Saturation 28.3 % (20-50); Potassium 3.9 mmol/L (3.5-5.1); Sodium 140 mmol/L (136-145); Total Bilirubin 0.3 mg/dL (0.15-1.2); Total Iron Binding Capacity 388 mcg/dl; Total Protein 7.1 g/dL (6.6-8.7); Unsaturated Iron Binding 278 ug/dL (112-347)
[2024-12-26 13:46] LABS: Vitamin B12 490 pg/mL (232-1245)
[2024-12-26 13:56] LABS: Folate Level 11.2 ng/mL (4.8-37.3)
[2024-12-29 02:40] LABS: Tissue Transglutaminse AB IGA <1.0 U/mL; Tissue Transglutaminse AB IGG <1.0 U/mL
== END 2025-01-16 23:59 | disposition home or self-care (01) ==
PROVIDERS: Internal Medicine; PCP Nurse Practitioner Family; Visit Provider Nurse Practitioner Family
DX: D72.810 Lymphocytopenia (principal); R63.4 Abnormal weight loss; R63.0 Anorexia; R11.10 Vomiting, unspecified; R19.7 Diarrhea, unspecified; Z79.899 Other long term (current) drug therapy; Z68.24 Body mass index [BMI] 24.0-24.9, adult; K64.8 Other hemorrhoids; Z72.0 Tobacco use; D64.9 Anemia, unspecified
CPT/HCPCS: 36415; 80053; 82607; 82728; 82746; 83010; 83516; 83540; 83550; 83615; 85025; 85045; 99214

== ENCOUNTER → 2025-01-05 08:29 | Outpatient (BNVA) | payer MEDICARE, OTHER, SELFPAY | PROVIDERS: PCP Nurse Practitioner Family; Visit Provider Orthopaedic Surgery | DX: Z98.890 Other specified postprocedural states (principal); Z48.89 Encounter for other specified surgical aftercare | CPT/HCPCS: 99024 ==